=== PATIENT | male | born 1945 | race Caucasian/White ===

== ENCOUNTER → 2018-07-09 | Outpatient (CLI) | payer MEDICARE ==
[~2018-07-09] MED LIST: ADAL40PEN SC; ALPR.5; AMLO5; ARIPIPRAZOLE5 MG; ASPI325 PO; ASPI81EC; ATEN50; ATEN50 PO; ATOR40TA PO; BENA20 PO; BENAML10/2 PO; BENAML10/40 PO; BENZOPRIL; BUPR150ER PO; Balsalazide Di750 MG PO; CHLO25B PO; CHOL10002; COLE1 PO; Canasa1000 MG PR; Cardura Xl8 MG PO; DAILY MULTIVIT1 EAC2 PO; DICYCLOMINE; DOXA4; DOXA4 PO; DRON5; DULO30 PO; DULO60; ELIQUIS5 MG; FENO67 PO; FINA5; FLUO20; HYDACE5; LOTREL 10/40; LOVA40 PO; Lotensin40 MG PO; MESAL; NEBI10 PO; OMEGA-3 FISH O1 EAC7 PO; OMEP10ER PO; OMEP20ER PO; POTCHL10ER; SPIR25 PO; VENL75ER PO; VYTORIN; ZOLP10 PO; ZOLP5; ZYRTEC10 MG
== END | disposition home or self-care (01) ==
LOC: LAB SHORT 08:27 → PLD 08:27
DX: D03.59 Melanoma in situ of other part of trunk (principal)
CPT/HCPCS: 88305

== ENCOUNTER 2020-11-13 11:25 | Day surgery (SDC) | payer MEDICARE ==
[~2020-11-13] VITALS: Ht 165.1 cm; Wt 65.2 kg
[~2020-11-13 11:25] MED LIST changes: +AMLO5 PO; +ARIP15 PO; +ATEN25 PO; +BENAZEPRIL HCL40 M1 PO; +CANASA1000 MG; +COLESTID1 G1 PO; +Coumadin3 MG PO; +DOXA2 PO; +DULO60 PO; +FINA5 PO; +FISH OIL 1,2001 EAC1 PO; +HUMIRA SC; +MULTIPLE VITAM1 EACH PO; +POTA10T PO; +VITAMIN D325 MC3 PO; +ZYRTEC10 M2 PO
== END 2020-11-13 13:35 | disposition home or self-care (01) ==
LOC: ORSCSDS 11:25
PROVIDERS: Internal Medicine Gastroenterology
PROC: 0DBP8ZX Excision of Rectum, Via Natural or Artificial Opening Endoscopic, Diagnostic (ICD-10-PCS; principal; 2020-11-13 12:30)
PROC: 0DBE8ZX Excision of Large Intestine, Via Natural or Artificial Opening Endoscopic, Diagnostic (ICD-10-PCS; principal; 2020-11-13 12:30)
PROC: 0DBN8ZX Excision of Sigmoid Colon, Via Natural or Artificial Opening Endoscopic, Diagnostic (ICD-10-PCS; principal; 2020-11-13 12:30)
DX: K51.90 Ulcerative colitis, unspecified, without complications (principal); D12.5 Benign neoplasm of sigmoid colon; K57.30 Diverticulosis of large intestine without perforation or abscess without bleeding; I10 Essential (primary) hypertension; I48.91 Unspecified atrial fibrillation; Z79.01 Long term (current) use of anticoagulants; I25.10 Atherosclerotic heart disease of native coronary artery without angina pectoris; Z87.891 Personal history of nicotine dependence; G47.33 Obstructive sleep apnea (adult) (pediatric); K21.9 Gastro-esophageal reflux disease without esophagitis; N18.9 Chronic kidney disease, unspecified; Z86.73 Personal history of transient ischemic attack (TIA), and cerebral infarction without residual deficits; Z79.899 Other long term (current) drug therapy
CPT/HCPCS: 88305; J2704; J7120

== ENCOUNTER → 2021-05-29 | Outpatient (CLI) | payer MEDICARE ==
[2021-05-29 13:49] LABS: Alanine Aminotransfer (ALT/SGP 30 U/L (12-78); Albumin, Blood 3.7 g/dL (3.4-5.0); Alk Phos 96 U/L (40-126); Anion Gap 6 mmol/L (6-16); Aspartate Aminotrans (AST/SGOT 17 U/L (12-37); Bilirubin, Total 0.6 mg/dL (0.1-1.0); Blood Urea Nitrogen 11 mg/dL (8-24); CO2, Blood 33 mmol/L (21-32); Calcium, Blood 9.1 mg/dL (8.5-10.1); Chloride, Blood 103 mmol/L (98-108); Globulin, Blood 3.8 g/dL (2.2-4.0); Glomerular Filtration Rate >60 (60-); Glucose, Blood 92 mg/dL (70-99); Potassium, Blood 3.4 mmol/L (3.5-5.5); Sodium, Blood 142 mmol/L (136-145); Total Protein, Blood 7.5 g/dL (6.4-8.2)
[2021-05-29 13:54] LABS: BASOPHILS ABSOLUTE AUTO 0.06 K/mm3 (0.00-0.23); BASOPHILS PERCENT AUTO 1 % (0-2); EOSINOPHILS ABSOLUTE AUTO 0.17 K/mm3 (0.00-0.68); EOSINOPHILS PERCENT AUTO 3 % (0-6); Hematocrit 39.4 % (37.0-53.0); IMMATURE GRAN ABSOLUTE AUTO 0.02 K/mm3 (0.00-0.10); IMMATURE GRAN PERCENT AUTO 0 % (0-1); LYMPHOCYTES PERCENT AUTO 17 % (21-46); MONOCYTES ABSOLUTE AUTO 0.56 K/mm3 (0.16-1.47); MONOCYTES PERCENT AUTO 9 % (4-13); Mean Corpuscular HGB 31.3 pg (26.0-34.0); Mean Corpuscular Volume 95 fL (80-100); NEUTROPHILS ABSOLUTE AUTO 4.22 K/mm3 (1.96-9.15); NEUTROPHILS PERCENT AUTO 70 % (41-73); RDW Coefficient Variation 14.8 % (11.7-14.2); RDW Standard Deviation 51.8 fL (35.1-46.3); Red Blood Cell Count 4.16 M/mm3 (4.30-5.90); White Blood Cell Count 6.03 K/mm3 (4.00-11.30)
== END | disposition home or self-care (01) ==
LOC: LAB SHORT 13:34 → LAB 13:34
PROVIDERS: Physician Assistant
DX: R10.9 Unspecified abdominal pain (principal)
CPT/HCPCS: 80053; 83690; 85025

== ENCOUNTER 2021-06-09 10:05 | Emergency (ER) | payer MEDICARE ==
[~2021-06-09] VITALS: Ht 165.1 cm; Wt 68.0 kg
[2021-06-09 10:36] LABS: Source, Urine Clean Catch
[2021-06-09] MEDS ORDERED: K-TAB ER20 ME1 PO (10:37)
[2021-06-09] MEDS ORDERED: DESVENLAFAXINE100 M3 PO (10:37)
[2021-06-09 10:40] LABS: BASOPHILS ABSOLUTE AUTO 0.07 K/mm3 (0.00-0.23); BASOPHILS PERCENT AUTO 1 % (0-2); EOSINOPHILS PERCENT AUTO 6 % (0-6); Hematocrit 43.6 % (37.0-53.0); Hemoglobin 14.2 g/dL (13.5-17.5); IMMATURE GRAN ABSOLUTE AUTO 0.01 K/mm3 (0.00-0.10); IMMATURE GRAN PERCENT AUTO 0 % (0-1); LYMPHOCYTES ABSOLUTE AUTO 1.37 K/mm3 (0.84-5.20); LYMPHOCYTES PERCENT AUTO 27 % (21-46); MONOCYTES ABSOLUTE AUTO 0.62 K/mm3 (0.16-1.47); MONOCYTES PERCENT AUTO 12 % (4-13); Mean Corpuscular HGB 30.5 pg (26.0-34.0); Mean Corpuscular HGB Conc 32.6 g/dL (31.5-36.5); Mean Corpuscular Volume 94 fL (80-100); Mean Platelet Volume 12.4 fL (9.1-12.4); NEUTROPHILS ABSOLUTE AUTO 2.67 K/mm3 (1.96-9.15); NEUTROPHILS PERCENT AUTO 53 % (41-73); Platelet Count 117 K/mm3 (150-400); RDW Coefficient Variation 14.5 % (11.7-14.2); RDW Standard Deviation 50.1 fL (35.1-46.3); Red Blood Cell Count 4.65 M/mm3 (4.30-5.90); White Blood Cell Count 5.04 K/mm3 (4.00-11.30)
[2021-06-09 10:45] LABS: Appearance, Urine Clear (Clear); Bilirubin, Urine Neg (Neg); Blood, Urine 2+ (Neg); Color, Urine Yellow (P-Yellow); Glucose Qualitative, Urine Neg (Neg); Ketones, Urine Neg (Neg); Leukocyte Esterase, Urine Neg (Neg); Nitrite, Urine Neg (Neg); Protein, Urine 1+ (Neg); Urobilinogen, Urine NORM (Normal)
[2021-06-09 10:53] LABS: International Normalized Ratio 2.55; Prothrombin Time Results 25.2 Sec (9.7-11.5)
[2021-06-09 10:57] LABS: Alanine Aminotransfer (ALT/SGP 30 U/L (12-78); Albumin, Blood 3.3 g/dL (3.4-5.0); Albumin/Globulin Ratio 0.7 (0.8-1.8); Alk Phos 115 U/L (50-136); Anion Gap 4 mmol/L (6-16); Aspartate Aminotrans (AST/SGOT 24 U/L (12-37); Bilirubin, Total 0.6 mg/dL (0.1-1.0); Blood Urea Nitrogen 8 mg/dL (8-24); Bun/Creatinine Ratio 8.4 (12.0-20.0); CO2, Blood 32 mmol/L (21-32); Calcium, Blood 9.3 mg/dL (8.5-10.1); Chloride, Blood 102 mmol/L (98-108); Creatinine, Blood 0.95 mg/dL (0.60-1.20); Globulin, Blood 4.9 g/dL (2.2-4.0); Glomerular Filtration Rate >60 (60-); Glucose, Blood 101 mg/dL (70-99); Potassium, Blood 3.5 mmol/L (3.5-5.5); Sodium, Blood 138 mmol/L (136-145); Total Protein, Blood 8.2 g/dL (6.4-8.2)
[2021-06-09 11:00] LABS: Squamous Epithelial Cells Not Seen /hpf (Few); White Blood Cells, Urine 0-2 /hpf (0-5)
[2021-06-09 11:01] LABS: Bacteria Rare /hpf; Hyaline Casts 0-2 /lpf (0-2)
== END 2021-06-09 13:06 | disposition home or self-care (01) ==
LOC: ER 10:05
PROVIDERS: Emergency Medicine
DX: R10.9 Unspecified abdominal pain (principal); R31.9 Hematuria, unspecified; I10 Essential (primary) hypertension; Z88.8 Allergy status to other drugs, medicaments and biological substances; Z79.899 Other long term (current) drug therapy; Z79.01 Long term (current) use of anticoagulants
CPT/HCPCS: 36415; 74177; 80053; 81001; 85025; 85610; 87086; 96374; 99284-25; J1885; J7030; Q9967

== ENCOUNTER → 2021-07-01 | Outpatient (CLI) | payer MEDICARE ==
[~2021-07-01] MED LIST changes: +DESVENLAFAXINE100 M3 PO; +K-TAB ER20 ME1 PO
[2021-07-01 16:45] LABS: CHOL/HDL RATIO 2.2; Cholesterol 128 mg/dL (50-200); HDL Cholesterol 57 mg/dL (>39); Low Density Lipoprotein Chol 58 mg/dL (0-110); Triglycerides 64 mg/dL (30-160); Very Low Density Lipoprot Chol 12 mg/dL (6-32)
== END ==
LOC: LAB SHORT 15:06 → LAB 15:06
PROVIDERS: Family Medicine
DX: E78.00 Pure hypercholesterolemia, unspecified (principal)
CPT/HCPCS: 80061

== ENCOUNTER → 2021-08-17 | Outpatient (CLI) | payer MEDICARE | END | disposition home or self-care (01) | LOC: LAB SHORT 11:22 | DX: C44.319 Basal cell carcinoma of skin of other parts of face (principal) | CPT/HCPCS: 88305 ==

== ENCOUNTER → 2021-08-30 | Outpatient (CLI) | payer MEDICARE | END | disposition home or self-care (01) | LOC: LAB SHORT 07:37 | DX: L57.8 Other skin changes due to chronic exposure to nonionizing radiation (principal); B88.0 Other acariasis | CPT/HCPCS: 88305 ==

== ENCOUNTER 2022-11-19 12:42 | Emergency (ER) | payer MEDICARE ==
[~2022-11-19] VITALS: Ht 162.6 cm; Wt 77.1 kg
[~2022-11-19 12:42] MED LIST changes: +CLOP75 PO; -FISH OIL 1,2001 EAC1 PO; +FISH OIL PO; +TOPROL XL25 MG PO; +WARF1 PO; +Zofran8 MG PO
[2022-11-19 13:40] LABS: BASOPHILS ABSOLUTE AUTO 0.08 K/mm3 (0.00-0.23); BASOPHILS PERCENT AUTO 1 % (0-2); EOSINOPHILS ABSOLUTE AUTO 0.38 K/mm3 (0.00-0.68); EOSINOPHILS PERCENT AUTO 6 % (0-6); Hematocrit 34.2 % (37.0-53.0); Hemoglobin 11.6 g/dL (13.5-17.5); IMMATURE GRAN ABSOLUTE AUTO 0.09 K/mm3 (0.00-0.10); IMMATURE GRAN PERCENT AUTO 1 % (0-1); LYMPHOCYTES ABSOLUTE AUTO 1.35 K/mm3 (0.84-5.20); LYMPHOCYTES PERCENT AUTO 21 % (21-46); MONOCYTES ABSOLUTE AUTO 0.55 K/mm3 (0.16-1.47); MONOCYTES PERCENT AUTO 8 % (4-13); Mean Corpuscular HGB 30.1 pg (26.0-34.0); Mean Corpuscular HGB Conc 33.9 g/dL (31.5-36.5); Mean Corpuscular Volume 89 fL (80-100); Mean Platelet Volume 10.7 fL (9.1-12.4); NEUTROPHILS ABSOLUTE AUTO 4.06 K/mm3 (1.96-9.15); NEUTROPHILS PERCENT AUTO 63 % (41-73); NRBC ABSOLUTE 0.02 K/mm3 (0.00-0.02); NRBC Auto 0.3 /100 WBC (0.0-0.2); Platelet Count 173 K/mm3 (150-400); RDW Standard Deviation 45.2 fL (35.1-46.3); Red Blood Cell Count 3.85 M/mm3 (4.30-5.90); White Blood Cell Count 6.51 K/mm3 (4.00-11.30)
[2022-11-19 14:09] LABS: Albumin, Blood 3.1 g/dL (3.4-5.0); Albumin/Globulin Ratio 0.8 (0.8-1.8); Bilirubin, Total 0.5 mg/dL (0.1-1.0); Bun/Creatinine Ratio 11.1 (12.0-20.0); Calcium, Blood 8.9 mg/dL (8.5-10.1); Creatinine, Blood 1.17 mg/dL (0.60-1.20); Globulin, Blood 3.9 g/dL (2.2-4.0); Potassium, Blood 3.8 mmol/L (3.5-5.5)
[2022-11-19 16:15] VITALS: BP 155/93
[2022-11-19] MEDS ORDERED: OXYC5 PO (17:41)
[2022-11-22] MEDS ORDERED: ENTRESTO 24 MG1 EACH PO (16:04)
[2022-11-22] MEDS ORDERED: [UNRECOGNIZED DRUG - CODE] PO (16:05)
[2022-11-22] MEDS ORDERED: VITAMIN D310 MC4 PO (16:05)
[2022-11-22] MEDS ORDERED: QUETIAPINE FUM150 MG PO (16:05)
[2022-11-22] MEDS ORDERED: FISH OIL 1,2001 EAC7 PO (16:06)
[2022-11-22] MEDS ORDERED: ONDA4ODT MM (20:32)
[2022-11-22] MEDS ORDERED: Roxicodone5 MG PO (20:32)
[2022-11-22] MEDS ORDERED: DEXA2 PO (20:32)
== END 2022-11-19 17:49 | disposition home or self-care (01) ==
LOC: ER 12:42
PROVIDERS: Student in an Organized Health Care Education/Training Program
DX: R51.9 Headache, unspecified (principal); Z87.891 Personal history of nicotine dependence; Z88.8 Allergy status to other drugs, medicaments and biological substances; Z79.899 Other long term (current) drug therapy
CPT/HCPCS: 36415; 80053; 85025; 99284

== ENCOUNTER 2023-02-03 16:24 | Emergency (ER) | payer MEDICARE ==
[~2023-02-03] VITALS: Ht 165.1 cm; Wt 72.6 kg
[~2023-02-03 16:24] MED LIST changes: +DEXA2 PO; +ENTRESTO 24 MG1 EACH PO; +FISH OIL 1,2001 EAC7 PO; +ONDA4ODT MM; +OXYC5 PO; +QUETIAPINE FUM150 MG PO; +Roxicodone5 MG PO; +VITAMIN D310 MC4 PO; +[UNRECOGNIZED DRUG - CODE] PO
[2023-02-03 17:11] LABS: BASOPHILS ABSOLUTE AUTO 0.04 K/mm3 (0.00-0.23); BASOPHILS PERCENT AUTO 1 % (0-2); EOSINOPHILS ABSOLUTE AUTO 0.27 K/mm3 (0.00-0.68); EOSINOPHILS PERCENT AUTO 6 % (0-6); Hematocrit 35.2 % (37.0-53.0); Hemoglobin 11.7 g/dL (13.5-17.5); IMMATURE GRAN ABSOLUTE AUTO 0.02 K/mm3 (0.00-0.10); IMMATURE GRAN PERCENT AUTO 0 % (0-1); LYMPHOCYTES ABSOLUTE AUTO 1.28 K/mm3 (0.84-5.20); LYMPHOCYTES PERCENT AUTO 27 % (21-46); MONOCYTES ABSOLUTE AUTO 0.68 K/mm3 (0.16-1.47); MONOCYTES PERCENT AUTO 14 % (4-13); Mean Corpuscular HGB 28.3 pg (26.0-34.0); Mean Corpuscular HGB Conc 33.2 g/dL (31.5-36.5); Mean Corpuscular Volume 85 fL (80-100); Mean Platelet Volume 12.3 fL (9.1-12.4); NEUTROPHILS PERCENT AUTO 52 % (41-73); Platelet Count 155 K/mm3 (150-400); RDW Coefficient Variation 14.8 % (11.7-14.2); RDW Standard Deviation 46.4 fL (35.1-46.3); Red Blood Cell Count 4.14 M/mm3 (4.30-5.90); White Blood Cell Count 4.79 K/mm3 (4.00-11.30)
[2023-02-03 17:31] LABS: Albumin, Blood 2.9 g/dL (3.4-5.0); Albumin/Globulin Ratio 0.6 (0.8-1.8); Bilirubin, Total 0.3 mg/dL (0.1-1.0); Bun/Creatinine Ratio 11.7 (12.0-20.0); Creatinine, Blood 1.62 mg/dL (0.60-1.20); Globulin, Blood 4.5 g/dL (2.2-4.0); Potassium, Blood 3.4 mmol/L (3.5-5.5); Total Protein, Blood 7.4 g/dL (6.4-8.2)
[2023-02-03] MEDS ORDERED: QUET300 PO (18:32)
[2023-02-03] MEDS ORDERED: ELIQUIS2.5 MG (18:32)
[2023-02-03] MEDS ORDERED: Lasix20 MG PO (22:59)
[2023-02-03 23:00] VITALS: BP 134/98
[2023-02-03 23:00] LABS: Influenza A, PCR NEGATIVE (NEGATIVE); Influenza B, PCR NEGATIVE (NEGATIVE); Resp Syncytial Virus, PCR NEGATIVE (NEGATIVE)
[2023-02-03 23:21] LABS: SARS-Cov-2 (COVID-19) PCR, MMC POSITIVE (NEGATIVE)
== END 2023-02-03 23:30 | disposition home or self-care (01) ==
LOC: ER 16:24
PROVIDERS: Emergency Medicine; Physician Assistant
DX: I62.02 Nontraumatic subacute subdural hemorrhage (principal); U07.1 COVID-19; I11.0 Hypertensive heart disease with heart failure; I50.89 Other heart failure; Z87.891 Personal history of nicotine dependence; Z95.5 Presence of coronary angioplasty implant and graft; Z79.899 Other long term (current) drug therapy; Z79.01 Long term (current) use of anticoagulants
CPT/HCPCS: 0241U; 70450; 71046; 80053; 83880; 84443; 84484; 85025; 93005; 93010; 94640; 94664; 96374; 99285-25; J1940

== ENCOUNTER 2023-02-13 08:44 | Emergency (ER) | payer MEDICARE ==
[~2023-02-13] VITALS: Ht 165.1 cm; Wt 70.3 kg
[~2023-02-13 08:44] MED LIST changes: +ELIQUIS2.5 MG; +Lasix20 MG PO; +QUET300 PO
[2023-02-13] MEDS ORDERED: DOXAZOSIN MESYLA8 M2 (09:18)
[2023-02-13 09:32] LABS: BASOPHILS ABSOLUTE AUTO 0.06 K/mm3 (0.00-0.23); BASOPHILS PERCENT AUTO 1 % (0-2); EOSINOPHILS ABSOLUTE AUTO 0.27 K/mm3 (0.00-0.68); EOSINOPHILS PERCENT AUTO 3 % (0-6); Hematocrit 31.9 % (37.0-53.0); Hemoglobin 10.5 g/dL (13.5-17.5); IMMATURE GRAN ABSOLUTE AUTO 0.04 K/mm3 (0.00-0.10); IMMATURE GRAN PERCENT AUTO 1 % (0-1); LYMPHOCYTES ABSOLUTE AUTO 1.68 K/mm3 (0.84-5.20); LYMPHOCYTES PERCENT AUTO 20 % (21-46); MONOCYTES ABSOLUTE AUTO 0.65 K/mm3 (0.16-1.47); MONOCYTES PERCENT AUTO 8 % (4-13); Mean Corpuscular HGB 28.2 pg (26.0-34.0); Mean Corpuscular HGB Conc 32.9 g/dL (31.5-36.5); Mean Corpuscular Volume 86 fL (80-100); Mean Platelet Volume 10.5 fL (9.1-12.4); NEUTROPHILS PERCENT AUTO 68 % (41-73); Platelet Count 260 K/mm3 (150-400); RDW Coefficient Variation 14.7 % (11.7-14.2); RDW Standard Deviation 45.6 fL (35.1-46.3); Red Blood Cell Count 3.73 M/mm3 (4.30-5.90)
[2023-02-13 09:39] LABS: Albumin, Blood 2.7 g/dL (3.4-5.0); Albumin/Globulin Ratio 0.6 (0.8-1.8); Bilirubin, Total 0.4 mg/dL (0.1-1.0); Bun/Creatinine Ratio 10.3 (12.0-20.0); Calcium, Blood 9.3 mg/dL (8.5-10.1); Creatinine, Blood 1.26 mg/dL (0.60-1.20); Globulin, Blood 4.4 g/dL (2.2-4.0); Potassium, Blood 3.7 mmol/L (3.5-5.5); Total Protein, Blood 7.1 g/dL (6.4-8.2)
[2023-02-13 12:54] VITALS: BP 122/87
== END 2023-02-13 12:53 | disposition home or self-care (01) ==
LOC: ER 08:44
PROVIDERS: Emergency Medicine
DX: I62.02 Nontraumatic subacute subdural hemorrhage (principal); R07.9 Chest pain, unspecified; I11.0 Hypertensive heart disease with heart failure; I50.9 Heart failure, unspecified; R05.9 Cough, unspecified; R42 Dizziness and giddiness; Z86.16 Personal history of COVID-19; Z88.8 Allergy status to other drugs, medicaments and biological substances; Z79.899 Other long term (current) drug therapy
CPT/HCPCS: 70450; 71046; 80053; 83880; 84145; 84484; 85025; 93005; 93010; 94640; 94664; 96374; 99285-25; J1940

== ENCOUNTER 2023-03-06 15:26 | Inpatient (IN) | payer MEDICARE ==
[~2023-03-06] VITALS: Ht 165.1 cm; Wt 69.2 kg
[~2023-03-06 15:26] MED LIST changes: +DOXAZOSIN MESYLA8 M2 PO; -HUMIRA SC; +HUMIRA(CF)40 MG/0.4 SC
[2023-03-06 16:44] LABS: Influenza A, PCR NEGATIVE (NEGATIVE); Influenza B, PCR NEGATIVE (NEGATIVE); Resp Syncytial Virus, PCR NEGATIVE (NEGATIVE)
[2023-03-06 16:46] LABS: SARS-Cov-2 (COVID-19) PCR, MMC POSITIVE (NEGATIVE)
[2023-03-06 20:17] LABS: Source, Urine Clean Catch
[2023-03-06 20:19] LABS: BASOPHILS ABSOLUTE AUTO 0.06 K/mm3 (0.00-0.23); BASOPHILS PERCENT AUTO 1 % (0-2); EOSINOPHILS ABSOLUTE AUTO 0.13 K/mm3 (0.00-0.68); EOSINOPHILS PERCENT AUTO 2 % (0-6); Hematocrit 31.7 % (37.0-53.0); Hemoglobin 10.5 g/dL (13.5-17.5); IMMATURE GRAN ABSOLUTE AUTO 0.05 K/mm3 (0.00-0.10); IMMATURE GRAN PERCENT AUTO 1 % (0-1); LYMPHOCYTES ABSOLUTE AUTO 1.53 K/mm3 (0.84-5.20); LYMPHOCYTES PERCENT AUTO 21 % (21-46); MONOCYTES ABSOLUTE AUTO 0.59 K/mm3 (0.16-1.47); MONOCYTES PERCENT AUTO 8 % (4-13); Mean Corpuscular HGB 27.6 pg (26.0-34.0); Mean Corpuscular HGB Conc 33.1 g/dL (31.5-36.5); Mean Corpuscular Volume 83 fL (80-100); Mean Platelet Volume 10.6 fL (9.1-12.4); NEUTROPHILS ABSOLUTE AUTO 4.93 K/mm3 (1.96-9.15); NEUTROPHILS PERCENT AUTO 68 % (41-73); Platelet Count 268 K/mm3 (150-400); RDW Coefficient Variation 15.3 % (11.7-14.2); RDW Standard Deviation 46.1 fL (35.1-46.3); White Blood Cell Count 7.29 K/mm3 (4.00-11.30)
[2023-03-06 20:20] LABS: Bilirubin, Urine Neg (Neg); Blood, Urine 2+ (Neg); Glucose Qualitative, Urine Neg (Neg); Ketones, Urine 3+ (Neg); Leukocyte Esterase, Urine Neg (Neg); Nitrite, Urine Neg (Neg); Protein, Urine 1+ (Neg); Urobilinogen, Urine NORM (Normal)
[2023-03-06 20:29] LABS: Appearance, Urine Clear (Clear); Color, Urine Yellow (P-Yellow)
[2023-03-06 20:30] LABS: Bacteria Not Seen /hpf; Red Blood Cells, Urine 0-2 /hpf (0-2); Squamous Epithelial Cells Rare /hpf (Few); White Blood Cells, Urine 0-2 /hpf (0-5)
[2023-03-06 20:39] LABS: Albumin, Blood 2.6 g/dL (3.4-5.0); Albumin/Globulin Ratio 0.5 (0.8-1.8); Bilirubin, Total 0.7 mg/dL (0.1-1.0); Bun/Creatinine Ratio 10.5 (12.0-20.0); Calcium, Blood 9.3 mg/dL (8.5-10.1); Creatinine, Blood 0.96 mg/dL (0.60-1.20); Globulin, Blood 4.8 g/dL (2.2-4.0); Potassium, Blood 3.2 mmol/L (3.5-5.5); Total Protein, Blood 7.4 g/dL (6.4-8.2)
[2023-03-07 05:20] VITALS: BP 158/86
--- NOTE | 2023-03-07 05:46 | NUR ---
ADMISSION PT ORIENTED TO ROOM. CALL LIGHT IN REACH. AT BEDSIDE DURING ADMISSION. WATER PROVIDED. LS EVEN & UNLABORED. VS REVIEWED. PT DENIES OTHER NEEDS AT THIS TIME. DR. MOREL CURRENTLY IN ROOM DISCUSSING PLAN WITH THE PT AND HIS .
[2023-03-07 05:53] LABS: BASOPHILS ABSOLUTE AUTO 0.03 K/mm3 (0.00-0.23); BASOPHILS PERCENT AUTO 0 % (0-2); EOSINOPHILS ABSOLUTE AUTO 0.04 K/mm3 (0.00-0.68); EOSINOPHILS PERCENT AUTO 1 % (0-6); Hematocrit 33.3 % (37.0-53.0); Hemoglobin 10.8 g/dL (13.5-17.5); IMMATURE GRAN ABSOLUTE AUTO 0.04 K/mm3 (0.00-0.10); IMMATURE GRAN PERCENT AUTO 1 % (0-1); LYMPHOCYTES ABSOLUTE AUTO 0.67 K/mm3 (0.84-5.20); LYMPHOCYTES PERCENT AUTO 10 % (21-46); MONOCYTES ABSOLUTE AUTO 0.11 K/mm3 (0.16-1.47); MONOCYTES PERCENT AUTO 2 % (4-13); Mean Corpuscular HGB 27.1 pg (26.0-34.0); Mean Corpuscular HGB Conc 32.4 g/dL (31.5-36.5); Mean Corpuscular Volume 84 fL (80-100); Mean Platelet Volume 10.5 fL (9.1-12.4); NEUTROPHILS ABSOLUTE AUTO 5.87 K/mm3 (1.96-9.15); NEUTROPHILS PERCENT AUTO 87 % (41-73); Platelet Count 296 K/mm3 (150-400); RDW Coefficient Variation 15.4 % (11.7-14.2); RDW Standard Deviation 46.5 fL (35.1-46.3); Red Blood Cell Count 3.99 M/mm3 (4.30-5.90); White Blood Cell Count 6.76 K/mm3 (4.00-11.30)
[2023-03-07] MEDS ORDERED: ATOR40TA PO (05:54)
[2023-03-07] MEDS ORDERED: Nitrostat0.3 MG SL (05:55)
[2023-03-07] MEDS ORDERED: NAC600 MG PO (05:56)
[2023-03-07 06:33] LABS: Albumin, Blood 2.7 g/dL (3.4-5.0); Albumin/Globulin Ratio 0.6 (0.8-1.8); Bilirubin, Total 0.7 mg/dL (0.1-1.0); Bun/Creatinine Ratio 12.2 (12.0-20.0); Calcium, Blood 9.4 mg/dL (8.5-10.1); Creatinine, Blood 0.9 mg/dL (0.60-1.20); Globulin, Blood 4.7 g/dL (2.2-4.0); Potassium, Blood 3.9 mmol/L (3.5-5.5); Total Protein, Blood 7.4 g/dL (6.4-8.2)
[2023-03-07 08:18] VITALS: BP 142/83
[2023-03-07 15:53] VITALS: BP 137/84
--- NOTE | 2023-03-07 18:46 | NUR ---
SHIFT SUMMARY: PT A&O X4. PT PLEASANT AND COOPERATIVE WITH ALL CARE. PT HAD SEVERAL SCANS/IMAGING TODAY W/ALL RESULTS IN CHART. PT INDEPENDENT IN ROOM. RAPID COVID TEST DONE THIS SHIFT SHOWING NEGATIVE. RESULTS IN COBRA PACKET. PT WORKED WITH PT/OT THIS SHIFT. NO C/O PAIN EXCEPT 2/10 PRIOR TO FIRST MRI. PT NEEDED THIS FOR PAIN/ANXIETY. ARRIVED THIS SHIFT. THIS RN GAVE UPDATE. NS RUNNING @75/HR. STEROID CHANGED TO TID. AWAITING BED AT [facility]. CALL LIGHT IN REACH. REPORT GIVEN TO ONCOMING RN.
[2023-03-07 19:52] VITALS: BP 131/76
[2023-03-08 04:40] VITALS: BP 141/66
--- NOTE | 2023-03-08 06:21 | NUR ---
SHIFT SUMMARY: PATIENT A&OX4. CALM, PLEASANT AND COOPERATIVE c CARE. DENIES CP/PRESSURE, SOB, N/V, DIZZINESS, AND GENERALIZED PAIN. RA c SPO2 OF 99%. PATIENT IS CONTINENCE OF BOWELS AND BLADDER, AMBULATES TO BATHROOM INDEPENDENLTY T/O SHIFT. PATIENT SLEPT WELL T/O SHIFT. RECEIVED SCHEDULED MEDS PER EMAR. VITAL SIGNS REVIEWED. AWAITING BED AT [facility]. CALL LIGHT IN REACH. THIS RN RECEIVED CALLED FROM CARMELLA AT [facility] AROUND 0200'S TO CHECK PATIENT STATUS. PER CARMELLA "MOST LIKELY PATIENT WILL ADMITTED TO [facility] DEPT SEVERAL DAYS FROM NOW IF BEDS AVAILABLE AND SEVERAL PATIENT ON THE WAITING LIST WAITING TO BE ADMITTED." PATIENT EDUCATED ON NON SMOKING POLICY, RISK OF INJURY AND IGNITION SOURCES WHEN O2 IN USE. PATIENT DENIES SMOKING AND VERBALIZED UNDERSTANDING.
[2023-03-08 07:50] LABS: BASOPHILS ABSOLUTE AUTO 0.01 K/mm3 (0.00-0.23); BASOPHILS PERCENT AUTO 0 % (0-2); EOSINOPHILS PERCENT AUTO 0 % (0-6); Hemoglobin 9.8 g/dL (13.5-17.5); IMMATURE GRAN ABSOLUTE AUTO 0.05 K/mm3 (0.00-0.10); IMMATURE GRAN PERCENT AUTO 1 % (0-1); LYMPHOCYTES ABSOLUTE AUTO 0.85 K/mm3 (0.84-5.20); LYMPHOCYTES PERCENT AUTO 10 % (21-46); MONOCYTES PERCENT AUTO 4 % (4-13); Mean Corpuscular HGB 27.3 pg (26.0-34.0); Mean Corpuscular HGB Conc 32.7 g/dL (31.5-36.5); Mean Corpuscular Volume 84 fL (80-100); Mean Platelet Volume 11.5 fL (9.1-12.4); NEUTROPHILS ABSOLUTE AUTO 7.11 K/mm3 (1.96-9.15); NEUTROPHILS PERCENT AUTO 86 % (41-73); Platelet Count 152 K/mm3 (150-400); RDW Coefficient Variation 15.6 % (11.7-14.2); RDW Standard Deviation 46.8 fL (35.1-46.3); Red Blood Cell Count 3.59 M/mm3 (4.30-5.90); White Blood Cell Count 8.32 K/mm3 (4.00-11.30)
[2023-03-08 07:53] VITALS: BP 130/79
[2023-03-08 08:13] LABS: Bun/Creatinine Ratio 21.1 (12.0-20.0); Creatinine, Blood 0.95 mg/dL (0.60-1.20)
[2023-03-08 11:53] LABS: International Normalized Ratio 1.1; Prothrombin Time Results 11.5 Sec (9.7-11.5)
[2023-03-08 16:12] VITALS: BP 135/82
--- NOTE | 2023-03-08 18:43 | NUR ---
SHIFT SUMMARY IS A&O X 4. PLEASANT & COOPERATIVE WITH ALL CARE. VSS. NO C/O OF PAIN, N/V OR SOB. IS INDEPENDENT IN THE ROOM AND AMBULATES THE HALLS WITH VISITORS. PLAN IS FOR A CT GUIDED BIOPSY TO DIFFERENTIATE MASSES. COAGS DONE PER MD ORDER. S/W IMAGING AND PLAN IS FOR BIOPSY THOUGH BY END OF SHIFT HAS NOT YET BEEN DONE. NO BLOOD THINNERS HAVE BEEN GIVEN. PT'S APPETITE IS GOOD.
[2023-03-08 20:05] VITALS: BP 124/81
--- NOTE | 2023-03-09 03:51 | NUR ---
SHIFT SUMMARY. SHIFT HAS BEEN MOSTLY UNREMARKABLE. AOX4, PLEASANT, COOPERATIVE WITH CARE. CALLS APPROPRIATELY. NO COMPLAINTS OF PAIN THIS SHIFT. SPOKE WITH [facility] NURSE EARLY IN SHIFT TO OFFER UPDATE ON PT. PT IS AWAITING BED AT [facility]. PT WAS SUPPOSED TO GET CT GUIDED BIOPSY YESTERDAY PER NOTE AND REPORT BUT IT WAS NOT DONE. PER REPORT, PT IS TO GET THIS DONE BEFORE TRANSFER TO [facility]. WILL PASS THIS ONTO DAYSHIFT IN EFFORT TO GET COMPLETED TODAY. PT HAS SLEPT THROUGH MOST OF SHIFT AFTER MED PASS AND ASSESSMENT. BED LOCKED IN LOWEST POSITION. CALL LIGHT LEFT WITHIN REACH.
[2023-03-09 04:44] VITALS: BP 143/71
[2023-03-09 08:02] VITALS: BP 161/73
[2023-03-09 08:21] LABS: BASOPHILS ABSOLUTE AUTO 0.01 K/mm3 (0.00-0.23); BASOPHILS PERCENT AUTO 0 % (0-2); EOSINOPHILS PERCENT AUTO 0 % (0-6); Hematocrit 29.4 % (37.0-53.0); Hemoglobin 9.6 g/dL (13.5-17.5); IMMATURE GRAN ABSOLUTE AUTO 0.07 K/mm3 (0.00-0.10); IMMATURE GRAN PERCENT AUTO 1 % (0-1); LYMPHOCYTES ABSOLUTE AUTO 1.03 K/mm3 (0.84-5.20); LYMPHOCYTES PERCENT AUTO 9 % (21-46); MONOCYTES ABSOLUTE AUTO 0.32 K/mm3 (0.16-1.47); MONOCYTES PERCENT AUTO 3 % (4-13); Mean Corpuscular HGB 27.6 pg (26.0-34.0); Mean Corpuscular HGB Conc 32.7 g/dL (31.5-36.5); Mean Corpuscular Volume 85 fL (80-100); Mean Platelet Volume 11.8 fL (9.1-12.4); NEUTROPHILS ABSOLUTE AUTO 10.39 K/mm3 (1.96-9.15); NEUTROPHILS PERCENT AUTO 88 % (41-73); Platelet Count 204 K/mm3 (150-400); RDW Coefficient Variation 15.7 % (11.7-14.2); RDW Standard Deviation 47.7 fL (35.1-46.3); Red Blood Cell Count 3.48 M/mm3 (4.30-5.90); White Blood Cell Count 11.82 K/mm3 (4.00-11.30)
[2023-03-09 08:34] LABS: Bun/Creatinine Ratio 24.1 (12.0-20.0); Calcium, Blood 8.9 mg/dL (8.5-10.1); Potassium, Blood 4.1 mmol/L (3.5-5.5)
[2023-03-09 14:57] VITALS: BP 146/76
--- NOTE | 2023-03-09 17:06 | NUR ---
PATIENT IS ALERT AND ORIENTED AND COOPERATIVE WITH CARE. C/O NUMBNESS IN LOW BACK BUT NO PAIN. PATIENT HAS BEEN WALKING THE HALLS INDEPENDENTLY TODAY. HE HAD THE CT GUIDED BIOPSY THIS MORNING. THE PATIENT'S , MIKHAIL IS AT THE BEDSID. AN UPDATE WAS GIVEN TO HER REGARDING THE BIOPSY AND THAT WE ARE STILL WAITING FOR A BED AT [facility]. [facility] CALLED [facility] AFTERNOON AND ASKED SERVICE TECH/WELDERCORONA IF WE ARE STILL WANTING THE PATIENT TO TRANFER TO THEIR FACILITY TO WHICH SHE REPLIED "YES" AND ASKED THAT THE IMAGING FROM THE CT GUIDED BIOPSY BE PUSHED TO THEIR FACILITY, WHICH OUR GAS PIT WORKER IS WORKING ON. WILL CONTINUE TO MONITOR.
[2023-03-09 21:49] VITALS: BP 147/98
[2023-03-10 04:22] VITALS: BP 174/76
--- NOTE | 2023-03-10 04:45 | NUR ---
SHIFT SUMMARY. SHIFT HAS BEEN MOSTLY UNREMARKABLE. AOX4, PLEASANT, COOPERATIVE WITH CARE. NO PAIN REPORTED. HAS SLEPT THROUGH MOST OF SHIFT AFTER MED PASS AND SHIFT ASSESSMENT. CALLS APPROPRIATELY. SPOKE WITH [facility] NURSE TO OFFER UPDATE ON PT ALTHOUGH THERE HAVE BEEN NO SIGNIFICANT CHANGES SINCE LAST NIGHT OTHER THAN BIOPSY BEING PERFORMED ON DAY SHIFT YESTERDAY. PT IS STILL AWAITING BED AT [facility]. PT IS LOOKING FORWARD TO TRANSFER BUT IS VERY UNDERSTANDING OF SITUATION. BED LOCKED IN LOWEST POSITION. CALL LIGHT LEFT WITHIN REACH.
[2023-03-10 07:38] VITALS: BP 149/79
[2023-03-10 09:33] LABS: BASOPHILS ABSOLUTE AUTO 0.02 K/mm3 (0.00-0.23); BASOPHILS PERCENT AUTO 0 % (0-2); EOSINOPHILS PERCENT AUTO 0 % (0-6); Hematocrit 33.7 % (37.0-53.0); Hemoglobin 10.9 g/dL (13.5-17.5); IMMATURE GRAN ABSOLUTE AUTO 0.11 K/mm3 (0.00-0.10); IMMATURE GRAN PERCENT AUTO 1 % (0-1); LYMPHOCYTES ABSOLUTE AUTO 1.19 K/mm3 (0.84-5.20); LYMPHOCYTES PERCENT AUTO 13 % (21-46); MONOCYTES ABSOLUTE AUTO 0.33 K/mm3 (0.16-1.47); MONOCYTES PERCENT AUTO 4 % (4-13); Mean Corpuscular HGB 27.6 pg (26.0-34.0); Mean Corpuscular HGB Conc 32.3 g/dL (31.5-36.5); Mean Corpuscular Volume 85 fL (80-100); Mean Platelet Volume 10.8 fL (9.1-12.4); NEUTROPHILS ABSOLUTE AUTO 7.66 K/mm3 (1.96-9.15); NEUTROPHILS PERCENT AUTO 82 % (41-73); Platelet Count 274 K/mm3 (150-400); RDW Coefficient Variation 15.9 % (11.7-14.2); RDW Standard Deviation 48.2 fL (35.1-46.3); Red Blood Cell Count 3.95 M/mm3 (4.30-5.90); White Blood Cell Count 9.31 K/mm3 (4.00-11.30)
[2023-03-10 10:44] LABS: Bun/Creatinine Ratio 23.5 (12.0-20.0); Calcium, Blood 9.5 mg/dL (8.5-10.1); Creatinine, Blood 0.94 mg/dL (0.60-1.20); Percent Saturation 35.5 % (20.0-50.0); Potassium, Blood 3.8 mmol/L (3.5-5.5)
[2023-03-10 10:55] LABS: Stool Occult Bld Immuno 1 Negative (NEGATIVE)
--- NOTE | 2023-03-10 14:49 | NUR ---
PATIENT C/O NEW LOW BACK PAIN ON RIGHT AND LEFT SIDE. 09/[address] MATTHEWS NOTIFIED OF THIS NEW C/O PAIN IN PERSON WHEN SHE CAME TO [employer] APPRENTICE THE FAX FROM THE [facility].
[2023-03-10 15:47] VITALS: BP 147/78
[2023-03-10 20:53] VITALS: BP 143/72
[2023-03-10 20:55] VITALS: BP 141/82
--- NOTE | 2023-03-11 04:03 | NUR ---
SHIFT SUMMARY. SHIFT HAS BEEN UNREMARKABLE. PT AOX4, PLEASANT, COOPERATIVE WITH CARE. HAS SLEPT THROUGH MUCH OF SHIFT AFTER MED PASS AND SHIFT ASSESSMENT. NO CALL FROM [facility] NURSE THIS EVENING, PT STILL AWAITING BED TO OPEN UP TO HIM FOR TRANSFER. NO PAIN REPORTED THIS SHIFT. CALLS APPROPRIATELY. INDEPENDENT WITHIN ROOM. BED LOCKED IN LOWEST POSITION. CALL LIGHT LEFT WITHIN REACH.
[2023-03-11 05:31] VITALS: BP 155/83
[2023-03-11 07:00] LABS: BASOPHILS ABSOLUTE AUTO 0.01 K/mm3 (0.00-0.23); BASOPHILS PERCENT AUTO 0 % (0-2); EOSINOPHILS PERCENT AUTO 0 % (0-6); Hematocrit 30.8 % (37.0-53.0); Hemoglobin 9.9 g/dL (13.5-17.5); IMMATURE GRAN ABSOLUTE AUTO 0.16 K/mm3 (0.00-0.10); IMMATURE GRAN PERCENT AUTO 2 % (0-1); LYMPHOCYTES ABSOLUTE AUTO 1.18 K/mm3 (0.84-5.20); LYMPHOCYTES PERCENT AUTO 14 % (21-46); MONOCYTES ABSOLUTE AUTO 0.31 K/mm3 (0.16-1.47); MONOCYTES PERCENT AUTO 4 % (4-13); Mean Corpuscular HGB 27.3 pg (26.0-34.0); Mean Corpuscular HGB Conc 32.1 g/dL (31.5-36.5); Mean Corpuscular Volume 85 fL (80-100); Mean Platelet Volume 10.7 fL (9.1-12.4); NEUTROPHILS ABSOLUTE AUTO 7.06 K/mm3 (1.96-9.15); NEUTROPHILS PERCENT AUTO 81 % (41-73); Platelet Count 248 K/mm3 (150-400); RDW Coefficient Variation 15.9 % (11.7-14.2); RDW Standard Deviation 48.5 fL (35.1-46.3); Red Blood Cell Count 3.63 M/mm3 (4.30-5.90); White Blood Cell Count 8.72 K/mm3 (4.00-11.30)
--- NOTE | 2023-03-11 10:20 | NUR ---
PT IS TEARFUL, PACING THE ROOM, UPSET. PT PET IS ILL AND HE FEELS HELPLESS BEING HERE AT THE HOSPITAL. PT REQUESTED SOMETHING TO HELP RELAX HIS NERVES. I CALLED DR. ROMERO AND DR. BRIGGS. PLS SEE EMAR.
[2023-03-11 15:22] VITALS: BP 155/83
--- NOTE | 2023-03-11 15:50 | NUR ---
PT COBRA TRANSFER INITIATED. REPORT GIVEN TO PEDRO REBOLLEDO. PT IS ALERT AND ORIENTEDX4. INDEPENDENT IN THE ROOM. R/A. DENIES PAIN. NO BM SO FAR.
--- NOTE | 2023-03-11 17:41 | NUR ---
PT LEFT WITH TRANSPORT TO [facility]
== END 2023-03-11 17:40 | disposition short-term general hospital (02) | DRG 543 ==
LOC: ER 15:26 → MEDS 15:27
PROVIDERS: Family Medicine; Hospitalist; Student in an Organized Health Care Education/Training Program; ADMIT Internal Medicine
PROC: 0WBH3ZX Excision of Retroperitoneum, Percutaneous Approach, Diagnostic (ICD-10-PCS; principal; 2023-03-09)
DX: C41.2 Malignant neoplasm of vertebral column (principal); E87.1 Hypo-osmolality and hyponatremia; I48.20 Chronic atrial fibrillation, unspecified; M54.9 Dorsalgia, unspecified; R20.2 Paresthesia of skin; R31.9 Hematuria, unspecified; D72.829 Elevated white blood cell count, unspecified; G89.29 Other chronic pain; E87.8 Other disorders of electrolyte and fluid balance, not elsewhere classified; D69.49 Other primary thrombocytopenia; I12.9 Hypertensive chronic kidney disease with stage 1 through stage 4 chronic kidney disease, or unspecified chronic kidney disease; N18.9 Chronic kidney disease, unspecified; D63.1 Anemia in chronic kidney disease; E87.6 Hypokalemia; Z95.5 Presence of coronary angioplasty implant and graft; Z79.899 Other long term (current) drug therapy; Z88.8 Allergy status to other drugs, medicaments and biological substances; Z90.89 Acquired absence of other organs; Z79.891 Long term (current) use of opiate analgesic; Z98.890 Other specified postprocedural states; Z87.891 Personal history of nicotine dependence; Z85.830 Personal history of malignant neoplasm of bone
CPT/HCPCS: 0241U; 36415; 49180; 70553; 71046; 71260; 72156; 72157; 72158; 74177; 77012; 80048; 80053; 81001; 82274; 82607; 82728; 82746; 83540; 83550; 85025; 85610; 85730; 87426; 87811; 88305; 88341; 88342; 96365; 96366; 96374-59; 96375; 96376; 97161; 97165; 97530; 99285-25; A9270; A9579; G0378; J1100; J1650; J1885; J3010; J3480; J7030; J7050; Q9967

== ENCOUNTER 2023-04-07 00:19 | Day surgery (SDC) | payer MEDICARE ==
[~2023-04-07 00:19] MED LIST changes: +LEVO750 PO; +NAC600 MG PO; +Nitrostat0.3 MG SL
[2023-04-07 10:34] VITALS: BP 128/71
== END 2023-04-07 10:34 | disposition home or self-care (01) ==
LOC: ATC 00:19
DX: C83.39 Diffuse large B-cell lymphoma, extranodal and solid organ sites (principal); C79.51 Secondary malignant neoplasm of bone; I12.9 Hypertensive chronic kidney disease with stage 1 through stage 4 chronic kidney disease, or unspecified chronic kidney disease; N18.2 Chronic kidney disease, stage 2 (mild); I48.91 Unspecified atrial fibrillation; Z87.891 Personal history of nicotine dependence; Z88.8 Allergy status to other drugs, medicaments and biological substances; Z79.899 Other long term (current) drug therapy
CPT/HCPCS: 99211

== ENCOUNTER 2023-04-28 00:31 | Day surgery (SDC) | payer MEDICARE ==
[2023-04-28 08:28] VITALS: BP 129/64
[2023-04-28 09:28] LABS: Hematocrit 22.4 % (37.0-53.0); Hemoglobin 7.1 g/dL (13.5-17.5); Mean Corpuscular HGB 29.1 pg (26.0-34.0); Mean Corpuscular HGB Conc 31.7 g/dL (31.5-36.5); Mean Corpuscular Volume 92 fL (80-100); RDW Coefficient Variation 21.2 % (11.7-14.2); RDW Standard Deviation 69.6 fL (35.1-46.3); Red Blood Cell Count 2.44 M/mm3 (4.30-5.90); White Blood Cell Count 1.52 K/mm3 (4.00-11.30)
[2023-04-28 09:52] LABS: Albumin, Blood 2.8 g/dL (3.4-5.0); Bilirubin, Total 0.4 mg/dL (0.1-1.0); Bun/Creatinine Ratio 16.2 (12.0-20.0); Calcium, Blood 8.6 mg/dL (8.5-10.1); Creatinine, Blood 0.93 mg/dL (0.60-1.20); Globulin, Blood 2.7 g/dL (2.2-4.0); Potassium, Blood 3.1 mmol/L (3.5-5.5); Total Protein, Blood 5.5 g/dL (6.4-8.2)
[2023-04-28 09:54] LABS: BAND PERCENT MAN 6 % (0-8); BASOPHILS PERCENT MAN 0 % (0-2); EOSINOPHILS ABSOLUTE MAN 0.12 K/mm3 (0.00-0.68); EOSINOPHILS PERCENT MAN 8 % (0-6); LYMPHOCYTES ABSOLUTE MAN 0.82 K/mm3 (0.84-5.20); LYMPHOCYTES PERCENT MAN 54 % (21-46); MONOCYTES ABSOLUTE MAN 0.12 K/mm3 (0.16-1.47); MONOCYTES PERCENT MAN 8 % (4-13); NEUTROPHILS ABSOLUTE MAN 0.45 K/mm3 (1.96-9.15); SEG NEUTROPHILS PERCENT MAN 24 % (41-73); TOTAL CELLS COUNTED 50
--- NOTE | 2023-04-28 11:20 | NUR ---
LAB RESULTS FROM TODAY FAXED TO [facility].
== END 2023-04-28 08:56 | disposition home or self-care (01) ==
LOC: ATC 00:31
DX: C83.39 Diffuse large B-cell lymphoma, extranodal and solid organ sites (principal); C79.51 Secondary malignant neoplasm of bone; N18.2 Chronic kidney disease, stage 2 (mild); I48.91 Unspecified atrial fibrillation; Z88.8 Allergy status to other drugs, medicaments and biological substances; I10 Essential (primary) hypertension
CPT/HCPCS: 36415; 80053; 83615; 85025; 99211

== ENCOUNTER 2023-05-05 02:53 | Day surgery (SDC) | payer MEDICARE ==
[2023-05-05 11:10] LABS: Hematocrit 25.1 % (37.0-53.0); Hemoglobin 8.1 g/dL (13.5-17.5); Mean Corpuscular HGB 29.9 pg (26.0-34.0); Mean Corpuscular HGB Conc 32.3 g/dL (31.5-36.5); Mean Corpuscular Volume 93 fL (80-100); Mean Platelet Volume 12.3 fL (9.1-12.4); Platelet Count 106 K/mm3 (150-400); RDW Coefficient Variation 23.4 % (11.7-14.2); Red Blood Cell Count 2.71 M/mm3 (4.30-5.90); White Blood Cell Count 10.26 K/mm3 (4.00-11.30)
[2023-05-05 11:49] LABS: Albumin/Globulin Ratio 1.1 (0.8-1.8); Bilirubin, Total 0.2 mg/dL (0.1-1.0); Bun/Creatinine Ratio 10.6 (12.0-20.0); Calcium, Blood 8.4 mg/dL (8.5-10.1); Creatinine, Blood 1.13 mg/dL (0.60-1.20); Globulin, Blood 2.7 g/dL (2.2-4.0); Potassium, Blood 3.5 mmol/L (3.5-5.5); Total Protein, Blood 5.7 g/dL (6.4-8.2)
[2023-05-05 13:59] LABS: BAND PERCENT MAN 1 % (0-8); BASOPHILS PERCENT MAN 0 % (0-2); EOSINOPHILS PERCENT MAN 0 % (0-6); LYMPHOCYTES ABSOLUTE MAN 0.82 K/mm3 (0.84-5.20); LYMPHOCYTES PERCENT MAN 8 % (21-46); METAMYELOCYTE ABSOLUTE MAN 0.41 K/mm3 (0.00-0.00); METAMYELOCYTE PERCENT MAN 4 % (0-0); MONOCYTES ABSOLUTE MAN 0.92 K/mm3 (0.16-1.47); MONOCYTES PERCENT MAN 9 % (4-13); MYELOCYTE PERCENT MAN 2 % (0-0); SEG NEUTROPHILS PERCENT MAN 76 % (41-73); TOTAL CELLS COUNTED 100
--- NOTE | 2023-05-05 14:40 | NUR ---
LAB RESULTS FROM TODAY FAXED TO [facility] NP OFFICE.
== END 2023-05-05 10:49 | disposition home or self-care (01) ==
LOC: ATC 02:53
DX: C83.39 Diffuse large B-cell lymphoma, extranodal and solid organ sites (principal); C79.51 Secondary malignant neoplasm of bone; N18.2 Chronic kidney disease, stage 2 (mild); I48.91 Unspecified atrial fibrillation; I10 Essential (primary) hypertension
CPT/HCPCS: 36415; 80053; 83615; 85025; 99211

== ENCOUNTER 2023-05-19 02:41 | Day surgery (SDC) | payer MEDICARE ==
[2023-05-19 10:03] VITALS: BP 122/54
== END 2023-05-19 23:00 | disposition home or self-care (01) ==
LOC: ATC 02:41
DX: C83.39 Diffuse large B-cell lymphoma, extranodal and solid organ sites (principal); C79.51 Secondary malignant neoplasm of bone; I12.9 Hypertensive chronic kidney disease with stage 1 through stage 4 chronic kidney disease, or unspecified chronic kidney disease; N18.2 Chronic kidney disease, stage 2 (mild); I48.91 Unspecified atrial fibrillation; E87.6 Hypokalemia
CPT/HCPCS: 99211

== ENCOUNTER 2023-05-26 04:43 | Day surgery (SDC) | payer MEDICARE ==
[2023-05-26 10:04] VITALS: BP 117/72
== END 2023-05-26 10:18 | disposition home or self-care (01) ==
LOC: ATC 04:43
DX: C83.39 Diffuse large B-cell lymphoma, extranodal and solid organ sites (principal); C79.51 Secondary malignant neoplasm of bone; N18.2 Chronic kidney disease, stage 2 (mild); I48.91 Unspecified atrial fibrillation; I10 Essential (primary) hypertension
CPT/HCPCS: 99211

== ENCOUNTER 2023-05-31 02:33 | Emergency (ER) | payer MEDICARE ==
[~2023-05-31] VITALS: Ht 162.6 cm; Wt 70.3 kg
[2023-05-31 03:56] LABS: BASOPHILS ABSOLUTE AUTO 0.04 K/mm3 (0.00-0.23); BASOPHILS PERCENT AUTO 0 % (0-2); EOSINOPHILS PERCENT AUTO 0 % (0-6); Hematocrit 29.5 % (37.0-53.0); Hemoglobin 9.6 g/dL (13.5-17.5); IMMATURE GRAN PERCENT AUTO 1 % (0-1); LYMPHOCYTES ABSOLUTE AUTO 0.45 K/mm3 (0.84-5.20); LYMPHOCYTES PERCENT AUTO 2 % (21-46); MONOCYTES ABSOLUTE AUTO 0.33 K/mm3 (0.16-1.47); MONOCYTES PERCENT AUTO 2 % (4-13); Mean Corpuscular HGB 31.8 pg (26.0-34.0); Mean Corpuscular HGB Conc 32.5 g/dL (31.5-36.5); Mean Corpuscular Volume 98 fL (80-100); Mean Platelet Volume 11.1 fL (9.1-12.4); NEUTROPHILS ABSOLUTE AUTO 18.96 K/mm3 (1.96-9.15); NEUTROPHILS PERCENT AUTO 95 % (41-73); Platelet Count 247 K/mm3 (150-400); RDW Coefficient Variation 23.1 % (11.7-14.2); RDW Standard Deviation 82.4 fL (35.1-46.3); Red Blood Cell Count 3.02 M/mm3 (4.30-5.90); White Blood Cell Count 19.98 K/mm3 (4.00-11.30)
[2023-05-31 04:20] LABS: Albumin, Blood 3.6 g/dL (3.4-5.0); Albumin/Globulin Ratio 1.2 (0.8-1.8); Bilirubin, Total 0.4 mg/dL (0.1-1.0); Bun/Creatinine Ratio 29.1 (12.0-20.0); Calcium, Blood 9.9 mg/dL (8.5-10.1); Globulin, Blood 3.1 g/dL (2.2-4.0); Magnesium, Blood 3.2 mg/dL (1.6-2.4); Phosphorus, Blood 2.7 mg/dL (2.5-4.9); Potassium, Blood 3.5 mmol/L (3.5-5.5); Total Protein, Blood 6.7 g/dL (6.4-8.2)
[2023-05-31 07:00] VITALS: BP 140/78
[2023-05-31 07:10] LABS: Source, Urine Clean Catch
[2023-05-31 07:15] LABS: Appearance, Urine Clear (Clear); Bilirubin, Urine Neg (Neg); Blood, Urine Neg (Neg); Color, Urine Yellow (P-Yellow); Glucose Qualitative, Urine Neg (Neg); Ketones, Urine Neg (Neg); Leukocyte Esterase, Urine 1+ (Neg); Nitrite, Urine Neg (Neg); Protein, Urine Neg (Neg); Urobilinogen, Urine 1+ (Normal)
[2023-05-31 07:23] LABS: Amorphous Light (0-Heavy); Bacteria Rare /hpf; Calcium Oxalate Crystals Few /hpf; Red Blood Cells, Urine Not Seen /hpf (0-2); Squamous Epithelial Cells Not Seen /hpf (Few)
[2023-05-31] MEDS ORDERED: ONDA4ODT MM (07:35)
== END 2023-05-31 08:41 | disposition home or self-care (01) ==
LOC: ER 02:33
PROVIDERS: Emergency Medicine
DX: K52.9 Noninfective gastroenteritis and colitis, unspecified (principal); E86.0 Dehydration; T82.598A Other mechanical complication of other cardiac and vascular devices and implants, initial encounter; Y82.8 Other medical devices associated with adverse incidents; C83.30 Diffuse large B-cell lymphoma, unspecified site; I10 Essential (primary) hypertension; Z87.891 Personal history of nicotine dependence
CPT/HCPCS: 74019; 74177; 80053; 81001; 83735; 84100; 85025; 87086; 96365; 96375; 99284-25; J0696; J1885; J7030; Q9967

== ENCOUNTER 2023-06-09 02:31 | Day surgery (SDC) | payer MEDICARE ==
[2023-06-09 10:03] VITALS: BP 133/97
== END 2023-06-09 10:11 | disposition home or self-care (01) ==
LOC: ATC 02:31
DX: C83.39 Diffuse large B-cell lymphoma, extranodal and solid organ sites (principal); C79.51 Secondary malignant neoplasm of bone; N18.2 Chronic kidney disease, stage 2 (mild); I48.91 Unspecified atrial fibrillation
CPT/HCPCS: 99212

== ENCOUNTER 2023-06-16 09:17 | Day surgery (SDC) | payer MEDICARE ==
[2023-06-16 11:55] VITALS: BP 104/59
== END 2023-06-16 12:00 | disposition home or self-care (01) ==
LOC: ATC 09:17
DX: C83.39 Diffuse large B-cell lymphoma, extranodal and solid organ sites (principal); C79.51 Secondary malignant neoplasm of bone; N18.2 Chronic kidney disease, stage 2 (mild); I48.91 Unspecified atrial fibrillation; I12.9 Hypertensive chronic kidney disease with stage 1 through stage 4 chronic kidney disease, or unspecified chronic kidney disease
CPT/HCPCS: 99211

== ENCOUNTER 2023-06-30 03:08 | Day surgery (SDC) | payer MEDICARE ==
[2023-06-30 10:38] VITALS: BP 127/75
== END 2023-06-30 10:45 | disposition home or self-care (01) ==
LOC: ATC 03:08
DX: C83.39 Diffuse large B-cell lymphoma, extranodal and solid organ sites (principal); C79.51 Secondary malignant neoplasm of bone; N18.2 Chronic kidney disease, stage 2 (mild); I48.91 Unspecified atrial fibrillation; I12.9 Hypertensive chronic kidney disease with stage 1 through stage 4 chronic kidney disease, or unspecified chronic kidney disease
CPT/HCPCS: 99212

== ENCOUNTER 2023-07-06 02:07 | Day surgery (SDC) | payer MEDICARE ==
[2023-07-06] VITALS (7 sets, daily range): BP systolic 143–176; BP diastolic 71–95
--- NOTE | 2023-07-06 13:46 | NUR ---
PT DECLINED PRE MEDS FOR BLOOD TRANSFUSION TODAY. NO HISTORY OF TRANSFUSION REACTION. PT TO RETURN TOMORROW FOR [facility] DSG CHANGE AND DATE SPECIFIC LAB DRAW.
== END 2023-07-06 17:01 | disposition home or self-care (01) ==
LOC: ATC 02:07
DX: C83.39 Diffuse large B-cell lymphoma, extranodal and solid organ sites (principal); C79.51 Secondary malignant neoplasm of bone; N18.2 Chronic kidney disease, stage 2 (mild); I48.91 Unspecified atrial fibrillation; I50.9 Heart failure, unspecified
CPT/HCPCS: 36415; 36430; 86850; 86900; 86901; 86923; J7050; P9016

== ENCOUNTER 2023-07-07 10:31 | Day surgery (SDC) | payer MEDICARE ==
[2023-07-07 10:38] VITALS: BP 142/96
[2023-07-07 11:11] LABS: BASOPHILS ABSOLUTE AUTO 0.08 K/mm3 (0.00-0.23); BASOPHILS PERCENT AUTO 1 % (0-2); EOSINOPHILS ABSOLUTE AUTO 0.03 K/mm3 (0.00-0.68); EOSINOPHILS PERCENT AUTO 0 % (0-6); Hematocrit 29.4 % (37.0-53.0); Hemoglobin 9.7 g/dL (13.5-17.5); IMMATURE GRAN ABSOLUTE AUTO 0.51 K/mm3 (0.00-0.10); IMMATURE GRAN PERCENT AUTO 6 % (0-1); LYMPHOCYTES ABSOLUTE AUTO 0.56 K/mm3 (0.84-5.20); LYMPHOCYTES PERCENT AUTO 6 % (21-46); MONOCYTES ABSOLUTE AUTO 1.29 K/mm3 (0.16-1.47); MONOCYTES PERCENT AUTO 14 % (4-13); Mean Corpuscular HGB 32.6 pg (26.0-34.0); Mean Corpuscular Volume 99 fL (80-100); Mean Platelet Volume 11.8 fL (9.1-12.4); NEUTROPHILS ABSOLUTE AUTO 6.51 K/mm3 (1.96-9.15); NEUTROPHILS PERCENT AUTO 73 % (41-73); NRBC ABSOLUTE 0.03 K/mm3 (0.00-0.02); NRBC Auto 0.3 /100 WBC (0.0-0.2); Platelet Count 115 K/mm3 (150-400); RDW Coefficient Variation 19.8 % (11.7-14.2); RDW Standard Deviation 66.5 fL (35.1-46.3); Red Blood Cell Count 2.98 M/mm3 (4.30-5.90); White Blood Cell Count 8.98 K/mm3 (4.00-11.30)
--- NOTE | 2023-07-07 12:20 | NUR ---
LAB RESULTS FROM TODAY FAXED TO [facility].
== END 2023-07-07 10:54 | disposition home or self-care (01) ==
LOC: ATC 10:31
PROVIDERS: Registered Nurse
DX: C83.39 Diffuse large B-cell lymphoma, extranodal and solid organ sites (principal); C79.51 Secondary malignant neoplasm of bone; N18.2 Chronic kidney disease, stage 2 (mild); I48.91 Unspecified atrial fibrillation
CPT/HCPCS: 36592; 85025

== ENCOUNTER 2023-07-18 01:38 | Day surgery (SDC) | payer MEDICARE ==
[2023-07-18 16:45] VITALS: BP 150/86
[2023-07-18 17:00] LABS: Hematocrit 26.3 % (37.0-53.0); Hemoglobin 8.6 g/dL (13.5-17.5); Mean Corpuscular HGB Conc 32.7 g/dL (31.5-36.5); Mean Corpuscular Volume 101 fL (80-100); Platelet Count 59 K/mm3 (150-400); RDW Standard Deviation 62.6 fL (35.1-46.3); Red Blood Cell Count 2.61 M/mm3 (4.30-5.90); White Blood Cell Count 27.69 K/mm3 (4.00-11.30)
[2023-07-18 17:03] LABS: Mean Platelet Volume 13.9 fL (9.1-12.4)
[2023-07-18 17:17] LABS: International Normalized Ratio 1.09; Prothrombin Time Results 11.4 Sec (9.7-11.5)
[2023-07-18 18:23] LABS: BAND PERCENT MAN 2 % (0-8); BASOPHILS PERCENT MAN 0 % (0-2); EOSINOPHILS PERCENT MAN 0 % (0-6); LYMPHOCYTES PERCENT MAN 4 % (21-46); METAMYELOCYTE ABSOLUTE MAN 0.27 K/mm3 (0.00-0.00); METAMYELOCYTE PERCENT MAN 1 % (0-0); MONOCYTES ABSOLUTE MAN 0.27 K/mm3 (0.16-1.47); MONOCYTES PERCENT MAN 1 % (4-13); MYELOCYTE ABSOLUTE MAN 0.27 K/mm3 (0.00-0.00); MYELOCYTE PERCENT MAN 1 % (0-0); NEUTROPHILS ABSOLUTE MAN 25.75 K/mm3 (1.96-9.15); SEG NEUTROPHILS PERCENT MAN 91 % (41-73); TOTAL CELLS COUNTED 100
== END 2023-07-18 16:48 | disposition home or self-care (01) ==
LOC: ATC 01:38
PROVIDERS: Registered Nurse
DX: C83.39 Diffuse large B-cell lymphoma, extranodal and solid organ sites (principal); I48.91 Unspecified atrial fibrillation; I50.9 Heart failure, unspecified; I11.0 Hypertensive heart disease with heart failure
CPT/HCPCS: 36592; 85025; 85610; 85730

== ENCOUNTER 2023-07-21 00:59 | Day surgery (SDC) | payer MEDICARE ==
[2023-07-21 09:33] VITALS: BP 150/92
[2023-07-21 09:50] LABS: Hematocrit 24.7 % (37.0-53.0); Hemoglobin 7.7 g/dL (13.5-17.5); Mean Corpuscular HGB 31.2 pg (26.0-34.0); Mean Corpuscular HGB Conc 31.2 g/dL (31.5-36.5); Mean Corpuscular Volume 100 fL (80-100); Platelet Count 62 K/mm3 (150-400); RDW Coefficient Variation 16.5 % (11.7-14.2); RDW Standard Deviation 59.4 fL (35.1-46.3); Red Blood Cell Count 2.47 M/mm3 (4.30-5.90); White Blood Cell Count 4.07 K/mm3 (4.00-11.30)
[2023-07-21 10:26] LABS: BAND PERCENT MAN 2 % (0-8); BASOPHILS ABSOLUTE MAN 0.04 K/mm3 (0.00-0.23); BASOPHILS PERCENT MAN 1 % (0-2); EOSINOPHILS PERCENT MAN 0 % (0-6); LYMPHOCYTES ABSOLUTE MAN 0.16 K/mm3 (0.84-5.20); LYMPHOCYTES PERCENT MAN 4 % (21-46); MONOCYTES ABSOLUTE MAN 0.08 K/mm3 (0.16-1.47); MONOCYTES PERCENT MAN 2 % (4-13); NEUTROPHILS ABSOLUTE MAN 3.78 K/mm3 (1.96-9.15); SEG NEUTROPHILS PERCENT MAN 91 % (41-73); TOTAL CELLS COUNTED 100
== END 2023-07-21 09:43 | disposition home or self-care (01) ==
LOC: ATC 00:59
PROVIDERS: Registered Nurse
DX: C83.39 Diffuse large B-cell lymphoma, extranodal and solid organ sites (principal); I48.91 Unspecified atrial fibrillation; E78.00 Pure hypercholesterolemia, unspecified; I11.0 Hypertensive heart disease with heart failure; I50.9 Heart failure, unspecified; Z79.899 Other long term (current) drug therapy; Z87.891 Personal history of nicotine dependence
CPT/HCPCS: 36592; 85025

== ENCOUNTER 2023-07-23 11:21 | Day surgery (SDC) | payer MEDICARE ==
[2023-07-23 11:44] VITALS: BP 154/80
[2023-07-23 12:00] VITALS: BP 144/75
[2023-07-23 12:59] VITALS: BP 163/87
[2023-07-23 13:12] VITALS: BP 152/70
== END 2023-07-23 13:16 | disposition home or self-care (01) ==
LOC: ATC 11:21
DX: D64.9 Anemia, unspecified (principal); I48.91 Unspecified atrial fibrillation; E78.00 Pure hypercholesterolemia, unspecified; I11.0 Hypertensive heart disease with heart failure; I50.9 Heart failure, unspecified; C83.30 Diffuse large B-cell lymphoma, unspecified site; Z79.899 Other long term (current) drug therapy; Z87.891 Personal history of nicotine dependence
CPT/HCPCS: 36430; 36592; 86850; 86900; 86901; 86923; J7050; P9040

== ENCOUNTER 2023-07-28 16:09 | Inpatient (IN) | payer MEDICARE ==
[~2023-07-28] VITALS: Ht 162.6 cm; Wt 71.9 kg
[2023-07-28 16:53] LABS: BASOPHILS ABSOLUTE AUTO 0.06 K/mm3 (0.00-0.23); BASOPHILS PERCENT AUTO 1 % (0-2); EOSINOPHILS ABSOLUTE AUTO 0.02 K/mm3 (0.00-0.68); EOSINOPHILS PERCENT AUTO 0 % (0-6); Hematocrit 26.9 % (37.0-53.0); Hemoglobin 8.7 g/dL (13.5-17.5); IMMATURE GRAN ABSOLUTE AUTO 0.13 K/mm3 (0.00-0.10); IMMATURE GRAN PERCENT AUTO 2 % (0-1); LYMPHOCYTES ABSOLUTE AUTO 0.32 K/mm3 (0.84-5.20); LYMPHOCYTES PERCENT AUTO 5 % (21-46); MONOCYTES ABSOLUTE AUTO 0.61 K/mm3 (0.16-1.47); MONOCYTES PERCENT AUTO 9 % (4-13); Mean Corpuscular HGB 31.6 pg (26.0-34.0); Mean Corpuscular HGB Conc 32.3 g/dL (31.5-36.5); Mean Corpuscular Volume 98 fL (80-100); Mean Platelet Volume 12.7 fL (9.1-12.4); NEUTROPHILS ABSOLUTE AUTO 5.75 K/mm3 (1.96-9.15); NEUTROPHILS PERCENT AUTO 83 % (41-73); Platelet Count 104 K/mm3 (150-400); RDW Coefficient Variation 17.7 % (11.7-14.2); RDW Standard Deviation 59.5 fL (35.1-46.3); Red Blood Cell Count 2.75 M/mm3 (4.30-5.90); White Blood Cell Count 6.89 K/mm3 (4.00-11.30)
[2023-07-28 17:16] LABS: Albumin, Blood 3.2 g/dL (3.4-5.0); Bilirubin, Total 0.6 mg/dL (0.1-1.0); Bun/Creatinine Ratio 19.9 (12.0-20.0); Calcium, Blood 9.1 mg/dL (8.5-10.1); Creatinine, Blood 0.85 mg/dL (0.60-1.20); Globulin, Blood 3.1 g/dL (2.2-4.0); Potassium, Blood 3.5 mmol/L (3.5-5.5); Total Protein, Blood 6.3 g/dL (6.4-8.2)
[2023-07-28 18:28] LABS: Source, Urine Clean Catch
[2023-07-28 18:31] LABS: Bilirubin, Urine Neg (Neg); Blood, Urine 5+ (Neg); Color, Urine Amber (P-Yellow); Glucose Qualitative, Urine Neg (Neg); Ketones, Urine Neg (Neg); Leukocyte Esterase, Urine 1+ (Neg); Nitrite, Urine Neg (Neg); Protein, Urine 2+ (Neg); Urobilinogen, Urine 1+ (Normal)
[2023-07-28 18:37] LABS: Appearance, Urine Hazy (Clear); Mucus Light (0-Heavy)
[2023-07-28 18:38] LABS: Bacteria Mod /hpf; Calcium Oxalate Crystals Many /hpf; Squamous Epithelial Cells Rare /hpf (Few)
[2023-07-28] MEDS ORDERED: ABILIFY5 MG PO (19:10)
[2023-07-28] MEDS ORDERED: METOPROLOL SUCC25 MG PO (19:11)
[2023-07-28] MEDS ORDERED: ATOR40TA PO (19:11)
[2023-07-28] MEDS ORDERED: Ondansetron Odt8 MG (19:12)
[2023-07-28] MEDS ORDERED: FINA5 PO (19:12)
[2023-07-28] MEDS ORDERED: ENTRESTO 24 MG1 EAC3 PO (19:13)
[2023-07-28] MEDS ORDERED: MS Contin15 MG (19:13)
[2023-07-29 00:10] VITALS: BP 142/98
[2023-07-29] MEDS ORDERED: VITAMIN D350 MC3 PO (00:35)
--- NOTE | 2023-07-29 03:05 | NUR ---
0305 HRS- TELETECH REPORTS FIVE BEAT RUN OF V-TACH, RETURNED TO A-FIB. PT FOUND IN NO DISTRESS.
[2023-07-29 03:48] VITALS: BP 144/96
[2023-07-29 04:22] LABS: BASOPHILS ABSOLUTE AUTO 0.05 K/mm3 (0.00-0.23); BASOPHILS PERCENT AUTO 1 % (0-2); EOSINOPHILS ABSOLUTE AUTO 0.04 K/mm3 (0.00-0.68); EOSINOPHILS PERCENT AUTO 1 % (0-6); Hematocrit 24.2 % (37.0-53.0); Hemoglobin 7.9 g/dL (13.5-17.5); IMMATURE GRAN ABSOLUTE AUTO 0.07 K/mm3 (0.00-0.10); IMMATURE GRAN PERCENT AUTO 1 % (0-1); LYMPHOCYTES PERCENT AUTO 8 % (21-46); MONOCYTES ABSOLUTE AUTO 0.52 K/mm3 (0.16-1.47); MONOCYTES PERCENT AUTO 10 % (4-13); Mean Corpuscular HGB 31.7 pg (26.0-34.0); Mean Corpuscular HGB Conc 32.6 g/dL (31.5-36.5); Mean Corpuscular Volume 97 fL (80-100); Mean Platelet Volume 12.6 fL (9.1-12.4); NEUTROPHILS ABSOLUTE AUTO 4.15 K/mm3 (1.96-9.15); NEUTROPHILS PERCENT AUTO 79 % (41-73); Platelet Count 104 K/mm3 (150-400); RDW Coefficient Variation 17.5 % (11.7-14.2); RDW Standard Deviation 58.5 fL (35.1-46.3); Red Blood Cell Count 2.49 M/mm3 (4.30-5.90); White Blood Cell Count 5.23 K/mm3 (4.00-11.30)
[2023-07-29 04:44] LABS: Albumin, Blood 2.7 g/dL (3.4-5.0); Albumin/Globulin Ratio 0.9 (0.8-1.8); Bilirubin, Total 0.6 mg/dL (0.1-1.0); Bun/Creatinine Ratio 17.4 (12.0-20.0); Calcium, Blood 8.8 mg/dL (8.5-10.1); Creatinine, Blood 0.86 mg/dL (0.60-1.20); Potassium, Blood 3.2 mmol/L (3.5-5.5); Total Protein, Blood 5.7 g/dL (6.4-8.2)
--- NOTE | 2023-07-29 05:18 | NUR ---
SUMMARY- PT ARRIVED TO ROOM IN NO DISTRESS. PT REPORTS SOB W/ EXERTION. PT TRANSFERED TO BED. PT PLACED ON O2 @ 1 LPM VIA NC TO MAINTAIN SPO2 > 90%. PT HAD A FIVE BEAT RUN OF V-TACH, STRIP IN CHART. PT HAD NO ISSUES. PT HAS BEEN SLEEPING.
[2023-07-29 07:38] VITALS: BP 160/77
--- NOTE | 2023-07-29 08:26 | NUR ---
NOTE: PATIENT INFUSING IV K CHLORIDE AT THIS TIME PER ORDER WAS PLACED AT BEGINNING OF SHIFT. CALLED DR. KLEIN TO CLARIFY NEW ORDER TO GIVE OT DOSE PO K. RECEIVED ORDER FROM DR. KLEIN TO DC'D CURRENT ORDER PO K AND CONTINUE INFUSING THE IV K CHLORIDE.
[2023-07-29 09:11] VITALS: BP 134/77
--- NOTE | 2023-07-29 09:14 | NUR ---
NOTE: THIS RN RECEIVED A VOCERA CALL AT 0910 FROM [facility]. PER MALINDA PATIENT HAD 14 BEATS RUN OF VTACH. THIS RN ASSESS PATIENT. PATIENT LAYING IN BED RESTING, DENIES CP/PRESSURE, SOB AND DIZZINESS. VITALS TAKEN: BP 134/77 c HR OF [address] KLEIN TO REPORT THIS ISSUES, BUT GOES TO VOICE MAIL. THIS RN LEFT A MESSAGE TO CALL BACK AT [phone] AND NOTIFIED VISUALLY IMPAIRED TEACHER, TETE JAIN.
[2023-07-29 15:41] VITALS: BP 134/86
--- NOTE | 2023-07-29 15:57 | NUR ---
SHIFT SUMMARY: PATIENT A/OX4, ANSWER TO QUESTIONS APPROPRIATELY AND ABLE TO MAKE NEEDS KNOWN. PATIENT IS CALM, PLEASANT AND COOPERATIVE c CARE. PATIENT HAD EPISODE OF VTACH THIS AM (SEE AM NOTE) AND DR. KLEIN IS AWARE OF THIS ISSUE. PATIENT DENIES CP/PRESSURE, N/V, DIAPHORETIC AND DIZZINESS. PATIENT ON TELE AFIB HR 110'S-140'S BPM AND ONE EPISODE UP TO 160'S WHEN PATIENT AMBULATING TO BATHROOM AND BACK TO 120'S. PATIENT REPORTS SOB c AMBULATIONS. PATIENT CURRENTLY ON 1L OF O2 VIA NC c SPO2 IN THE HIGH 90'S. PATIENT RECEIVED IV LASIX AND OT DOSE OF IV POTASSIUM CHLORIDE. PATIENT IS CONTIN/INCONT OF BLADDER, ATTENDS PLACED AND USES URINAL c ASSISTANCE. PATIENT ON CARDIAC DIET c 1500 FR. PATIENT HAD AN ECHO DONE TODAY, AWAITING FOR RESULT. PATIENT RECEIVED SCHEDULED MEDS PER EMAR. VITAL SIGNS REVIEWED. PIV TO L WRIST AND PICC LINE TO LEANN SALINE LOCKED. BED ALARM ON FOR SAFETY. CALL LIGHT IN REACH.
[2023-07-29 20:06] VITALS: BP 119/73
--- NOTE | 2023-07-30 05:07 | NUR ---
SHIFT SUMMARY PT A&O X4, CALM AND COOPERATIVE WITH CARE. ANSWERS QUESTIONS APPROPRAITELY. TELEMETRY: AFIB 110-130S. NO TELE EVENTS THIS SHIFT. PT IS CONTINENT/INCONTINET OF BOWEL BLADDER. USES URINAL IN BED INDEPENDENTLY. ATTENDS IN PLACE AND CHANGED PRN. PT CURRENTLY ON 1L O2 VIA NC. SCHEDULED MEDS GIVEN PER EMAR. VITAL SIGNS REVIEWED. PT ON CARDIAC DIET WITH 1500 ML FR. LEFT WRIST IV AND LEANN PICC LINE SL. AT BEDSIDE T/O SHIFT. BED KEPT IN LOWEST POSITION WITH CALL LIGHT WITHIN REACH. WILL CONTINUE TO MONITOR UNTIL END OF SHIFT.
[2023-07-30 05:53] LABS: BASOPHILS ABSOLUTE AUTO 0.05 K/mm3 (0.00-0.23); BASOPHILS PERCENT AUTO 1 % (0-2); EOSINOPHILS ABSOLUTE AUTO 0.04 K/mm3 (0.00-0.68); EOSINOPHILS PERCENT AUTO 1 % (0-6); Hematocrit 24.4 % (37.0-53.0); Hemoglobin 7.9 g/dL (13.5-17.5); IMMATURE GRAN PERCENT AUTO 2 % (0-1); LYMPHOCYTES ABSOLUTE AUTO 0.35 K/mm3 (0.84-5.20); LYMPHOCYTES PERCENT AUTO 6 % (21-46); MONOCYTES ABSOLUTE AUTO 0.47 K/mm3 (0.16-1.47); MONOCYTES PERCENT AUTO 8 % (4-13); Mean Corpuscular HGB 31.7 pg (26.0-34.0); Mean Corpuscular HGB Conc 32.4 g/dL (31.5-36.5); Mean Corpuscular Volume 98 fL (80-100); Mean Platelet Volume 12.7 fL (9.1-12.4); NEUTROPHILS ABSOLUTE AUTO 4.65 K/mm3 (1.96-9.15); NEUTROPHILS PERCENT AUTO 82 % (41-73); Platelet Count 130 K/mm3 (150-400); RDW Coefficient Variation 17.3 % (11.7-14.2); RDW Standard Deviation 59.1 fL (35.1-46.3); Red Blood Cell Count 2.49 M/mm3 (4.30-5.90); White Blood Cell Count 5.66 K/mm3 (4.00-11.30)
[2023-07-30 06:05] VITALS: BP 125/57
[2023-07-30 06:54] LABS: Bun/Creatinine Ratio 18.2 (12.0-20.0); Calcium, Blood 8.6 mg/dL (8.5-10.1); Creatinine, Blood 0.88 mg/dL (0.60-1.20); Potassium, Blood 3.1 mmol/L (3.5-5.5)
[2023-07-30 07:36] VITALS: BP 148/98
[2023-07-30 16:13] VITALS: BP 130/84
--- NOTE | 2023-07-30 16:47 | NUR ---
SHIFT SUMMARY: PATIENT A/OX4, CALM, PLEASANT AND COOPERATIVE c CARE. PATIENT USES CALL LIGHT APPROPRIATELY AND ABLE TO MAKE NEEDS KNOWN. PATIENT STILL ON TELE, AFIB HR RANGES 87-110'S BPM. OVERALL, PATIENT HR HAS IMPROVED TODAY. PATIENT REPORTS "FEELING BETTER TODAY COMPARED YESTERDAY AND BREATHING HAS IMPROVED." PT STILL ON 1L OF O2 VIA NC c SPO2 IN THE MID TO HIGH 90'S. PATIENT RECEIVED IV LASIX AND SCHEDULED MEDS PER EMAR. PATIENT IS CONTIN/INCON OF BLADDER, USES URINAL c ASSISTANCE, ATTENDS PLACED AND CHANGED T/O SHIFT. PATIENT STILL ON CARDIAC DIET c 1200 FR. PATIENT HAD PT EVAL TODAY AND RECOMMENDED HH SERVICES. PATIENT DENIES CP/PRESSURE, N/V, DIZZINESS AND GENERALIZED PAIN. VITAL SIGNS REVIEWED. PICC LINE TO LEANN AND PIV TO L FOREARM SALINE LOCKED. BED ALARM ON FOR SAFETY. CALL LIGHT IN REACH.
[2023-07-30 19:34] VITALS: BP 130/96
[2023-07-31 04:14] VITALS: BP 137/86
--- NOTE | 2023-07-31 04:22 | NUR ---
NOTE PT AWAKE MOST OF THE NIGHT. FINALLY RESTED WITH LIGHTS AFFA BOUT 0400. HE DID STATE HE WISHED HE HAD SOMETHING TO HELP HIM SLEEP ABOUT 0300. VSS. DENIED PAIN OR DISCOMFORT. CONTINUES ON 1L N/C. TELEMETRY AFIB RATE 70-110BPM. NO EVENTS REPORTED. CARE ONGOING.
[2023-07-31 07:23] VITALS: BP 138/90
[2023-07-31 15:14] VITALS: BP 116/81
--- NOTE | 2023-07-31 16:42 | NUR ---
SHIFT SUMMARY: NO ACUTE EVENTS. NO EVENTS ON TELE, AFIB 90-110 WITH PVC'S. PRIOR TO MEDS THIS MORNING, HAD VERY BRIEF HR INCREASE TO 150 FOR A FEW SECONDS, NONE SINCE MEDS GIVEN. DENIED PAIN. A&O X 4, PLEASANT AND COOPERATIVE. C/O SOB THIS AFTERNOON AFTER BEING TITRATED OFF OXYGEN EARLIER; RE-PLACED O2 @ 1.5 L/MIN NC WITH NO FURTHER COMPLAINTS, MAY NEED HOME O2 EVAL PRIOR TO DISCHARGE. COMPLIANT WITH FLUID RESTRICTION. APPETITE OK. VISITED FOR A TIME THIS MORNING.
[2023-07-31 20:26] VITALS: BP 117/82
--- NOTE | 2023-08-01 04:03 | NUR ---
NOTE PT RESTING QUIETLY. NO ISSUE RESTING TONIGHT. HE IS EXCITED TO GET HOME. NO C/O OF DISCOMFORT TONIGHT. CARE ON GOING.
[2023-08-01 04:39] VITALS: BP 125/91
[2023-08-01 05:09] LABS: BASOPHILS ABSOLUTE AUTO 0.04 K/mm3 (0.00-0.23); BASOPHILS PERCENT AUTO 1 % (0-2); EOSINOPHILS ABSOLUTE AUTO 0.05 K/mm3 (0.00-0.68); EOSINOPHILS PERCENT AUTO 1 % (0-6); Hematocrit 27.9 % (37.0-53.0); Hemoglobin 8.8 g/dL (13.5-17.5); IMMATURE GRAN ABSOLUTE AUTO 0.09 K/mm3 (0.00-0.10); IMMATURE GRAN PERCENT AUTO 2 % (0-1); LYMPHOCYTES ABSOLUTE AUTO 0.53 K/mm3 (0.84-5.20); LYMPHOCYTES PERCENT AUTO 9 % (21-46); MONOCYTES ABSOLUTE AUTO 0.55 K/mm3 (0.16-1.47); MONOCYTES PERCENT AUTO 9 % (4-13); Mean Corpuscular HGB Conc 31.5 g/dL (31.5-36.5); Mean Corpuscular Volume 98 fL (80-100); Mean Platelet Volume 12.2 fL (9.1-12.4); NEUTROPHILS ABSOLUTE AUTO 4.73 K/mm3 (1.96-9.15); NEUTROPHILS PERCENT AUTO 79 % (41-73); Platelet Count 193 K/mm3 (150-400); RDW Coefficient Variation 17.5 % (11.7-14.2); RDW Standard Deviation 60.2 fL (35.1-46.3); Red Blood Cell Count 2.84 M/mm3 (4.30-5.90); White Blood Cell Count 5.99 K/mm3 (4.00-11.30)
[2023-08-01 05:42] LABS: Bun/Creatinine Ratio 30.9 (12.0-20.0); Calcium, Blood 9.5 mg/dL (8.5-10.1); Creatinine, Blood 0.84 mg/dL (0.60-1.20); Potassium, Blood 4.6 mmol/L (3.5-5.5)
[2023-08-01 07:34] VITALS: BP 131/85
[2023-08-01] MEDS ORDERED: FURO20 PO (13:31)
--- NOTE | 2023-08-01 15:01 | NUR ---
PATIENT DISCHARGED TO HOME WITH , ACCOMPANIED BY HIS . IV SALINE LOCK AND TELEMETRY REMOVED WITHOUT INCIDENT. PATIENT HAS STML, SO VERBALIZED UNDERSTANDING OF D/C INSTRUCTIONS, WILL MAKE HIS FOLLOW UP APPOINTMENTS. OFF UNIT VIA W/C AT 1405. NO PERSONAL BELONGINGS LEFT BEHIND IN ROOM.
[2023-08-02] MEDS ORDERED: OXYC5 PO (15:42)
[2023-08-02] MEDS ORDERED: NAC600 MG PO (15:43)
[2023-08-02] MEDS ORDERED: ENTRESTO 24 MG1 EAC2 PO (15:43)
[2023-08-02] MEDS ORDERED: MS Contin15 MG PO (15:44)
== END 2023-08-01 14:10 | disposition home health service (06) | DRG 291 ==
LOC: ER 16:09 → MEDS 16:10
PROVIDERS: Hospitalist; Physician Assistant; Student in an Organized Health Care Education/Training Program; ADMIT Internal Medicine
DX: I11.0 Hypertensive heart disease with heart failure (principal); I50.23 Acute on chronic systolic (congestive) heart failure; J96.01 Acute respiratory failure with hypoxia; N39.0 Urinary tract infection, site not specified; C83.39 Diffuse large B-cell lymphoma, extranodal and solid organ sites; C79.51 Secondary malignant neoplasm of bone; Z66 Do not resuscitate; I48.91 Unspecified atrial fibrillation; D63.8 Anemia in other chronic diseases classified elsewhere; D69.6 Thrombocytopenia, unspecified; Z28.21 Immunization not carried out because of patient refusal; Z87.820 Personal history of traumatic brain injury; Z87.19 Personal history of other diseases of the digestive system; Z87.891 Personal history of nicotine dependence; E78.00 Pure hypercholesterolemia, unspecified; Z79.899 Other long term (current) drug therapy
CPT/HCPCS: 36415; 36592; 71046; 80048; 80053; 81001; 83735; 83880; 84484; 85025; 93005; 93010; 93306; 96372; 96374; 96375; 96376; 97110; 97116; 97162; 97165; 97530; 97535; 99285-25; A9270; G0378; J1650; J1940; J3480; J7050

== ENCOUNTER 2023-08-02 09:40 | Inpatient (IN) | payer MEDICARE ==
[~2023-08-02] VITALS: Ht 172.7 cm; Wt 66.7 kg
[~2023-08-02 09:40] MED LIST changes: +ABILIFY5 MG PO; +ENTRESTO 24 MG1 EAC3 PO; +FURO20 PO; +METOPROLOL SUCC25 MG PO; +MS Contin15 MG; +Ondansetron Odt8 MG; +VITAMIN D350 MC3 PO
[2023-08-02 10:49] LABS: BASOPHILS ABSOLUTE AUTO 0.07 K/mm3 (0.00-0.23); BASOPHILS PERCENT AUTO 1 % (0-2); EOSINOPHILS PERCENT AUTO 3 % (0-6); Hematocrit 27.4 % (37.0-53.0); Hemoglobin 8.5 g/dL (13.5-17.5); IMMATURE GRAN ABSOLUTE AUTO 0.19 K/mm3 (0.00-0.10); IMMATURE GRAN PERCENT AUTO 3 % (0-1); LYMPHOCYTES ABSOLUTE AUTO 0.54 K/mm3 (0.84-5.20); LYMPHOCYTES PERCENT AUTO 7 % (21-46); MONOCYTES ABSOLUTE AUTO 0.61 K/mm3 (0.16-1.47); MONOCYTES PERCENT AUTO 8 % (4-13); Mean Corpuscular Volume 100 fL (80-100); Mean Platelet Volume 11.7 fL (9.1-12.4); NEUTROPHILS ABSOLUTE AUTO 5.78 K/mm3 (1.96-9.15); NEUTROPHILS PERCENT AUTO 78 % (41-73); NRBC ABSOLUTE 0.02 K/mm3 (0.00-0.02); NRBC Auto 0.3 /100 WBC (0.0-0.2); Platelet Count 201 K/mm3 (150-400); RDW Coefficient Variation 17.8 % (11.7-14.2); RDW Standard Deviation 61.4 fL (35.1-46.3); Red Blood Cell Count 2.74 M/mm3 (4.30-5.90); White Blood Cell Count 7.39 K/mm3 (4.00-11.30)
[2023-08-02 11:09] LABS: Albumin, Blood 2.7 g/dL (3.4-5.0); Albumin/Globulin Ratio 0.8 (0.8-1.8); Bilirubin, Total 0.3 mg/dL (0.1-1.0); Bun/Creatinine Ratio 35.2 (12.0-20.0); Calcium, Blood 9.1 mg/dL (8.5-10.1); Creatinine, Blood 0.83 mg/dL (0.60-1.20); Globulin, Blood 3.2 g/dL (2.2-4.0); Potassium, Blood 4.1 mmol/L (3.5-5.5); Total Protein, Blood 5.9 g/dL (6.4-8.2)
[2023-08-02 15:39] VITALS: BP 138/97
[2023-08-02] MEDS ORDERED: OXYC5 PO (15:42)
[2023-08-02] MEDS ORDERED: NAC600 MG PO (15:43)
[2023-08-02] MEDS ORDERED: ENTRESTO 24 MG1 EAC2 PO (15:43)
[2023-08-02] MEDS ORDERED: MS Contin15 MG PO (15:44)
--- NOTE | 2023-08-02 18:18 | NUR ---
PT ADMIT FROM ED. WEAKNESS AND SOB NOTED. LABORED BREATHING AT REST, DIMINISHED IN ALL LOBES, UNABLE TO STAND DUE TO WEAKNESS, BEDREST, INCONT. ANSWERS QUESTIONS APPROPRIATELY, INTERMITTENT CONFUSION. 2L NC, CONTINUOUS PULSE OX. ABLE TO MAKE NEEDS KNOWN, BED ALARM ON FOR SAFETY.
--- NOTE | 2023-08-02 18:34 | NUR ---
Pt very fatigued and disheveled. at bedside discussing care with rn case mgr. pt is very distraught and has not slept she is showing great caregiver stress. plan is to admit and work on fluid blance. Review briefly with options of care if he declines further up to and including hospice. Will follow up for support.
[2023-08-02 19:25] VITALS: BP 118/77
[2023-08-03 02:08] VITALS: BP 141/93
[2023-08-03 05:51] LABS: BASOPHILS ABSOLUTE AUTO 0.08 K/mm3 (0.00-0.23); BASOPHILS PERCENT AUTO 1 % (0-2); EOSINOPHILS ABSOLUTE AUTO 0.07 K/mm3 (0.00-0.68); EOSINOPHILS PERCENT AUTO 1 % (0-6); Hematocrit 25.5 % (37.0-53.0); Hemoglobin 8.1 g/dL (13.5-17.5); IMMATURE GRAN ABSOLUTE AUTO 0.23 K/mm3 (0.00-0.10); IMMATURE GRAN PERCENT AUTO 3 % (0-1); LYMPHOCYTES ABSOLUTE AUTO 0.58 K/mm3 (0.84-5.20); LYMPHOCYTES PERCENT AUTO 8 % (21-46); MONOCYTES ABSOLUTE AUTO 0.58 K/mm3 (0.16-1.47); MONOCYTES PERCENT AUTO 8 % (4-13); Mean Corpuscular HGB Conc 31.8 g/dL (31.5-36.5); Mean Corpuscular Volume 98 fL (80-100); Mean Platelet Volume 11.5 fL (9.1-12.4); NEUTROPHILS ABSOLUTE AUTO 5.41 K/mm3 (1.96-9.15); NEUTROPHILS PERCENT AUTO 78 % (41-73); NRBC ABSOLUTE 0.04 K/mm3 (0.00-0.02); NRBC Auto 0.6 /100 WBC (0.0-0.2); Platelet Count 195 K/mm3 (150-400); RDW Coefficient Variation 17.9 % (11.7-14.2); RDW Standard Deviation 60.5 fL (35.1-46.3); Red Blood Cell Count 2.61 M/mm3 (4.30-5.90); White Blood Cell Count 6.95 K/mm3 (4.00-11.30)
[2023-08-03 06:06] LABS: Calcium, Blood 8.6 mg/dL (8.5-10.1); Creatinine, Blood 0.91 mg/dL (0.60-1.20); Magnesium, Blood 1.9 mg/dL (1.6-2.4); Potassium, Blood 3.6 mmol/L (3.5-5.5)
--- NOTE | 2023-08-03 06:28 | NUR ---
SHIFT SUMMARY. PATIENT IS AOX2 W/CONFUSION. PATIENT IS PLEASANT AND COOPERATIVE W/CARE. PATIENT VERY TIRED AT BEGINNING OF SHIFT. PATIENT C/O NOT BEING ABLE TO SLEEP APPROX. 2300 ON 08/02/23-PATIENT DENIED NEED FOR PRN SLEEPING AID. PATIENT TOSSED AND TURNED-THIS RN OFFERED HIM HIS PRN SLEEP AID TO HELP WITH HIS ISOMNIA-PATIENT DENIED NEED FOR SLEEPING AID D/T HE "TAKES TO MANY PILLS". BED IS LOCKED IN LOWEST POSITION W/CALL LIGHT IN REACH. NO S/S OF DISTRESS NOTED AT THIS TIME.
[2023-08-03 07:25] VITALS: BP 126/90
--- NOTE | 2023-08-03 15:39 | NUR ---
Goals of Care Met with Papa Boone, whom goes by "Mitchell", in his room with at bedside. Reviewed care options with Mitchell and his , Lore at great length. Mitchell reports not wanting to spend all his time in the hospital and has a great desire to be able to go outside from time to time. Lore also endorses the importance of quality of life vs qty. Mitchell is scheduled for chemo injection on Monday08/07/23 in [place]. Post injection he has to lay flat on a table for 1 hour then an additional 2 hours at home. At this time pt would not tolerate lying flat d/t respiratory status and chronic fluid overload. Lore does not feel that Mitchell can tolerated chemo on Monday. She will be canceling his chemo appt. Both pt and spouse would like to move forward with home hospice. Booklet [facility] Choices for [facility] provided to them. Notified Provider, Primary RN and Care Management of pt's choice t/o d/c home with hospice.
[2023-08-03 16:07] VITALS: BP 118/78
--- NOTE | 2023-08-03 17:06 | NUR ---
PT IS ALERT AND ORIENTED X3-4. SOME CONFUSION. AT BEDSIDE FOR MAJORITY OF SHIFT. PALLIATIVE CARE INVOLVED. PT STATES SOMEWHAT UNSTEADY, BUT ABLE TO AMBULATE WITH SBA AND FWW. CALM AND COOPERATIVE WITH STAFF. 2-3LNC, TELE AFIB, PT REPORTS FEELING BETTER TODAY. NO ACUTE CHANGES. PT ABLE TO MAKE NEEDS KNOWN, BED ALARM ON AND CALL LIGHT IN REACH.
[2023-08-03 19:37] VITALS: BP 142/81
--- NOTE | 2023-08-04 04:40 | NUR ---
SHIFT SUMMARY. PATIENT IS A 78 YEAR OLD MALE IN WITH FAILURE TO THRIVE. PATIENT IS AOX3 W/CONFUSION. PATIENT IS ON 2 L'S O2 VIA NASAL CANNULA-PATIENT SATTING >92%. PATIENT IS PLEASANT AND COOPERATIVE WITH CARE. PATIENT DENIES PAIN. NO EVENTS OR CHANGES IN CONDITION THIS SHIFT. PATIENT TALKED WITH ON THE PHONE. PATIENT TAKES MEDS WHOLE WITH WATER. PATIENT IS A 1P ASSIST W/FWW AND [place] TO THE BATHROOM-GAIT IS UNDSTEADY. BED IS LOCKED IN THE LOWEST POSITION W/ CALL LIGHT IN REACH.
[2023-08-04 04:45] VITALS: BP 133/86
[2023-08-04 05:42] LABS: BASOPHILS ABSOLUTE AUTO 0.07 K/mm3 (0.00-0.23); BASOPHILS PERCENT AUTO 1 % (0-2); EOSINOPHILS ABSOLUTE AUTO 0.15 K/mm3 (0.00-0.68); EOSINOPHILS PERCENT AUTO 2 % (0-6); Hematocrit 26.4 % (37.0-53.0); Hemoglobin 8.1 g/dL (13.5-17.5); IMMATURE GRAN PERCENT AUTO 4 % (0-1); LYMPHOCYTES ABSOLUTE AUTO 0.51 K/mm3 (0.84-5.20); LYMPHOCYTES PERCENT AUTO 7 % (21-46); MONOCYTES ABSOLUTE AUTO 0.68 K/mm3 (0.16-1.47); MONOCYTES PERCENT AUTO 10 % (4-13); Mean Corpuscular HGB 30.5 pg (26.0-34.0); Mean Corpuscular HGB Conc 30.7 g/dL (31.5-36.5); Mean Corpuscular Volume 99 fL (80-100); Mean Platelet Volume 12.4 fL (9.1-12.4); NEUTROPHILS ABSOLUTE AUTO 5.33 K/mm3 (1.96-9.15); NEUTROPHILS PERCENT AUTO 76 % (41-73); NRBC ABSOLUTE 0.02 K/mm3 (0.00-0.02); NRBC Auto 0.3 /100 WBC (0.0-0.2); Platelet Count 151 K/mm3 (150-400); RDW Coefficient Variation 17.8 % (11.7-14.2); RDW Standard Deviation 60.5 fL (35.1-46.3); Red Blood Cell Count 2.66 M/mm3 (4.30-5.90); White Blood Cell Count 7.04 K/mm3 (4.00-11.30)
[2023-08-04 06:08] LABS: Bun/Creatinine Ratio 30.8 (12.0-20.0); Calcium, Blood 8.8 mg/dL (8.5-10.1); Creatinine, Blood 0.94 mg/dL (0.60-1.20); Potassium, Blood 3.4 mmol/L (3.5-5.5)
[2023-08-04 07:41] VITALS: BP 143/87
[2023-08-04 11:35] VITALS: BP 121/75
[2023-08-04 15:23] VITALS: BP 119/80
--- NOTE | 2023-08-04 16:12 | NUR ---
DC HOME WITH HOSPICE WRITTEN & VERBAL DC INSTRUCTIONS GIVEN TO PT WITH WIFR PRESENT, BOTH VERBALIZED GOOD UNDERSTANDING. ALL CONCERNS & QUESTIONS ADDRESSED. PICC LINE DC'D BY CHIN RN & PIV DC'D, BOTH WITH CATH TIPS INTACT, NO REDNESS OR SWELLING NOTED. NO NEW MEDS TO FAX TO PHARM. HOSPICE ARRANGED AND WILL BE MEETING PT & AT HOME. HOME O2 BROUGHT IN BY , PT CONNECTED TO HOME O2 AND W/C'D OUT TO PV WITH ALL PERSONAL BELONGINGS.
== END 2023-08-04 16:16 | disposition hospice, home (50) | DRG 291 ==
LOC: ER 09:40 → MEDS 15:05
PROVIDERS: Emergency Medicine; ADMIT Hospitalist
DX: I11.0 Hypertensive heart disease with heart failure (principal); I50.23 Acute on chronic systolic (congestive) heart failure; J96.01 Acute respiratory failure with hypoxia; C85.10 Unspecified B-cell lymphoma, unspecified site; K51.90 Ulcerative colitis, unspecified, without complications; N39.0 Urinary tract infection, site not specified; I48.91 Unspecified atrial fibrillation; D64.9 Anemia, unspecified; Z51.5 Encounter for palliative care; Z66 Do not resuscitate; R62.7 Adult failure to thrive; D69.6 Thrombocytopenia, unspecified; D63.8 Anemia in other chronic diseases classified elsewhere; Z86.79 Personal history of other diseases of the circulatory system; Z88.8 Allergy status to other drugs, medicaments and biological substances; Z79.899 Other long term (current) drug therapy; Z79.891 Long term (current) use of opiate analgesic; Z87.19 Personal history of other diseases of the digestive system; Z90.89 Acquired absence of other organs; Z95.5 Presence of coronary angioplasty implant and graft; Z98.890 Other specified postprocedural states; Z87.891 Personal history of nicotine dependence; Z68.22 Body mass index [BMI] 22.0-22.9, adult
CPT/HCPCS: 36415; 71045; 80048; 80053; 83735; 83880; 85025; 93005; 93010; 94762; 96374; 96375; 96376; 97116; 97162; 97165; 97535; 99285-25; A9270; G0378; J1940

== ENCOUNTER 2023-09-17 01:31 | Emergency (ER) | payer MEDICARE ==
[~2023-09-17] VITALS: Ht 162.6 cm; Wt 61.2 kg
[~2023-09-17 01:31] MED LIST changes: +ENTRESTO 24 MG1 EAC2 PO; +MS Contin15 MG PO
[2023-09-17] MEDS ORDERED: Tetanus and Diphtheria Toxoid 0.5 ML INJ IM ONE (02:10)
[2023-09-17] MEDS ORDERED: Bacitracin Zinc Oint 1GRAM UD Packet TOP ONE (02:20)
[2023-09-17] MEDS ORDERED: BACITRACIN ZIN1 EAC1 TOP (03:40)
[2023-09-17 04:00] VITALS: BP 110/73
== END 2023-09-17 04:22 | disposition home or self-care (01) ==
LOC: ER 01:31
DX: S01.01XA Laceration without foreign body of scalp, initial encounter (principal); W18.30XA Fall on same level, unspecified, initial encounter; Z88.8 Allergy status to other drugs, medicaments and biological substances; Z79.899 Other long term (current) drug therapy; I10 Essential (primary) hypertension; I48.91 Unspecified atrial fibrillation; Z87.891 Personal history of nicotine dependence
CPT/HCPCS: 12002; 70450; 90714; 99283-25